=== PATIENT | male | born 2000 | race African-American/Black ===

== ENCOUNTER 2022-06-24 07:04 | Observation (INO) | payer BC, SELFPAY ==
[2022-06-24] MEDS ORDERED: ONDANSETRON 4 MG/2 ML VIAL ONE (07:39)
[2022-06-24] MEDS ORDERED: FAMOTIDINE 20 MG/2 ML VIAL IV ONE (07:39)
[2022-06-24] MEDS ORDERED: NA CHLORIDE 0.9% 1,000 ML ONE ×2 (07:39→07:50)
[2022-06-24] MEDS ORDERED: LABETALOL HCL 100 MG TAB ONE (07:50)
[2022-06-24] MEDS ORDERED: LABETALOL 20 MG/4ML SYRINGE IV ONE ×2 (07:51→09:37)
[2022-06-24 08:00] LABS: Absolute Lymphocytes (CBC) 2.3 K/uL (0.7-4.9); Hematocrit 51.3 % (39.6-49.0); Lymphocytes % 25.3 % (15.3-44.8); MCV 89.5 fL (80-100); MPV 8.6 fL (7.6-11.3); RBC Red Blood Cell Count 5.74 M/uL (4.33-5.43)
[2022-06-24 08:22] LABS: Albumin 3.8 g/dL (3.4-5.0); Bilirubin Direct 0.1 mg/dL (0-0.2); Bilirubin Total 0.4 mg/dL (0.2-1.0); Potassium 3.8 mmol/L (3.5-5.1); Protein, Total 7.6 g/dL (6.4-8.2); Troponin High Sensitivity 24.9 pg/mL (<58.9)
--- NOTE | 2022-06-24 09:18 | RAD REPORT ---
EXAM DESCRIPTION: Will Single View06/24/2022 8:15 am CLINICAL HISTORY: Cough COMPARISON: none FINDINGS: The lungs appear clear of acute infiltrate. The heart is normal size IMPRESSION: No acute abnormalities displayed
[2022-06-24] MEDS ORDERED: Nicardipine/NS 25 MG/250 ML KIT IV ONE ×2 (09:45→16:31)
--- NOTE | 2022-06-24 10:34 | ER ---
Nurse's Notes [facility] Name: Lv Gonzalez Age: 22 yrs Sex: Male : 2000 Arrival Date: 06/24/2022 Time: 07:07 Bed 7 Private MD: Diagnosis: Essential (primary) hypertension-MALIGNANT;Hypertensive heart and chronic kidney disease with heart failure and stage 1 through stage 4 chronic kidney disease, or unspecified chronic kidney disease;Epistaxis Presentation: 06/24 07:26 Chief complaint: Patient states: Node bleed since 0545, hx of nose bleeds with high BP, jl7 denies HANNAH. Coronavirus screen: Vaccine status: Patient reports receiving the 2nd dose of the covid vaccine. At this time, the client does not indicate any symptoms associated with coronavirus-19. Ebola Screen: No symptoms or risks identified at this time. Initial Sepsis Screen: Does the patient meet any 2 criteria? No. Patient's initial sepsis screen is negative. Does the patient have a suspected source of infection? No. Patient's initial sepsis screen is negative. Risk Assessment: Do you want to hurt yourself or someone else? Patient reports no desire to harm self or others. Onset of symptoms was June 24, 2022 at 05:45. 07:26 Method Of Arrival: Ambulatory [facility] 07:29 Acuity: CASH 2 jl7 Triage Assessment: 07:29 General: Appears in no apparent distress. uncomfortable, Behavior is calm, cooperative, jl7 appropriate for age. Pain: Denies pain. Historical: - Allergies: 07:28 No Known Allergies; jl7 - Home Meds: 07:28 metoprolol [Active]; amlodipine oral [Active]; one more HTN pill [Active]; jl7 - PMHx: 07:28 Hypertensive disorder; jl7 - PSHx: 07:28 None; jl7 - Immunization history:: Client reports receiving the 2nd dose of the Covid vaccine. - Social history:: Smoking status: Reported history of juuling and/or vaping. Screenin:07 Abuse screen: Denies threats or abuse. Denies injuries from another. Nutritional kc6 screening: No deficits noted. Tuberculosis screening: No symptoms or risk factors identified. Fall Risk No fall in past 12 months (0 pts). No secondary diagnosis (0 pts). IV access (20 points). Ambulatory Aid- None/Bed Rest/Nurse Assist (0 pts). Gait- Normal/Bed Rest/Wheelchair (0 pts) Mental Status- Oriented to own ability (0 pts). Total Bray Fall Scale indicates No Risk (0-24 pts). Assessment: 08:04 General: Appears in no apparent distress. comfortable, Behavior is calm, cooperative, kc6 appropriate for age. Pain: Denies pain. Neuro: Kenny Agitation-Sedation Scale (RASS): 0 - Alert and Calm Level of Consciousness is awake, alert, obeys commands, Oriented to person, place, time, situation, Appropriate for age. Cardiovascular: Heart tones S1 S2 present Capillary refill < 3 seconds Rhythm is sinus rhythm Chest pain is denied. Respiratory: Airway is patent Trachea midline Respiratory effort is even, unlabored, Respiratory pattern is regular, symmetrical, Breath sounds are clear bilaterally. GI: No signs and/or symptoms were reported involving the gastrointestinal system. : No signs and/or symptoms were reported regarding the genitourinary system. EENT: No signs and/or symptoms were reported regarding the EENT system. Derm: No signs and/or symptoms reported regarding the dermatologic system. Skin is intact, Skin is pink, warm \T\ dry. Musculoskeletal: No signs and/or symptoms reported regarding the musculoskeletal system. Circulation, motion, and sensation intact. Capillary refill < 3 seconds, Range of motion: intact in all extremities. 09:04 Reassessment: Patient appears in no apparent distress at this time. No changes from kc6 previously documented assessment. Patient and/or family updated on plan of care and expected duration. Pain level reassessed. Patient is alert, oriented x 3, equal unlabored respirations, skin warm/dry/pink. Patient denies pain at this time. 10:04 Reassessment: Patient appears in no apparent distress at this time. No changes from kc6 previously documented assessment. Patient and/or family updated on plan of care and expected duration. Pain level reassessed. Patient is alert, oriented x 3, equal unlabored respirations, skin warm/dry/pink. Patient denies pain at this time. 11:04 Reassessment: Patient appears in no apparent distress at this time. No changes from kc6 previously documented assessment. Patient and/or family updated on plan of care and expected duration. Pain level reassessed. Patient is alert, oriented x 3, equal unlabored respirations, skin warm/dry/pink. Patient denies pain at this time. 12:04 Reassessment: Patient appears in no apparent distress at this time. No changes from kc6 previously documented assessment. Patient and/or family updated on plan of care and expected duration. Pain level reassessed. Patient is alert, oriented x 3, equal unlabored respirations, skin warm/dry/pink. Patient denies pain at this time. 13:04 Reassessment: Patient appears in no apparent distress at this time. No changes from kc6 previously documented assessment. Patient and/or family updated on plan of care and expected duration. Pain level reassessed. Patient is alert, oriented x 3, equal unlabored respirations, skin warm/dry/pink. Patient denies pain at this time. 14:04 Reassessment: Patient appears in no apparent distress at this time. No changes from kc6 previously documented assessment. Patient and/or family updated on plan of care and expected duration. Pain level reassessed. Patient is alert, oriented x 3, equal unlabored respirations, skin warm/dry/pink. Patient denies pain at this time. 15:04 Reassessment: Patient appears in no apparent distress at this time. No changes from kc6 previously documented assessment. Patient and/or family updated on plan of care and expected duration. Pain level reassessed. Patient is alert, oriented x 3, equal unlabored respirations, skin warm/dry/pink. Patient denies pain at this time. 16:04 Reassessment: Patient appears in no apparent distress at this time. No changes from kc6 previously documented assessment. Patient and/or family updated on plan of care and expected duration. Pain level reassessed. Patient is alert, oriented x 3, equal unlabored respirations, skin warm/dry/pink. Patient denies pain at this time. 17:04 Reassessment: Patient appears in no apparent distress at this time. No changes from kc6 previously documented assessment. Patient and/or family updated on plan of care and expected duration. Pain level reassessed. Patient is alert, oriented x 3, equal unlabored respirations, skin warm/dry/pink. Patient denies pain at this time. 18:04 Reassessment: Patient appears in no apparent distress at this time. No changes from kc6 previously documented assessment. Patient and/or family updated on plan of care and expected duration. Pain level reassessed. Patient is alert, oriented x 3, equal unlabored respirations, skin warm/dry/pink. Patient denies pain at this time. Vital Signs: 07:26 Pulse 77; Resp 17; Temp 97.2; Pulse Ox 100% on R/A; Weight 158.76 kg; Height 6 ft. 4 jl7 in. (193.04 cm); Pain 0/10; 07:29 BP 252 / 161; jl7 08:06 BP 237 / 153 LA Sitting (auto/lg); Pulse 70 LA; Resp 14 S; Temp 98.0(O); Pulse Ox 99% kc6 on R/A; Pain 0/10; 09:06 BP 219 / 112 LA Sitting (auto/lg); Pulse 59; Resp 18 S; Pulse Ox 98% on R/A; Pain 0/10; kc6 10:06 BP 201 / 128 LA Sitting (auto/lg); Pulse 59; Resp 18 S; Pulse Ox 98% on R/A; Pain 0/10; kc6 11:06 BP 184 / 110 LA Sitting (auto/reg); Pulse 63; Resp 18 S; Pulse Ox 96% on R/A; Pain 0/10;kc6 12:06 BP 194 / 133 LA Sitting (auto/lg); Pulse 86; Resp 18 S; Pulse Ox 99% on R/A; Pain 0/10; kc6 07:26 Body Mass Index 42.60 (158.76 kg, 193.04 cm) jl7 ED Course: 07:07 Patient arrived in ED. as 07:29 Arm band placed on right wrist. jl7 07:30 Triage completed. jl7 07:31 Alex Gonzalez MD is Attending Physician. [facility] 07:31 Smitha Melo, LILLY is Primary Nurse. kc6 07:55 Inserted saline lock: 20 gauge in right antecubital area, using aseptic technique. ko1 Blood collected. 08:03 XRAY Chest (1 view) Sent. kc6 08:17 XRAY Chest (1 view) In Process Unspecified. EDMS 10:31 Brian Castro is Hospitalizing Provider. mami 11:25 SARS RAPID Sent. kc6 14:14 No provider procedures requiring assistance completed. Patient admitted, IV remains in kc6 place. 14:15 Patient has correct armband on for positive identification. Placed in gown. Bed in low kc6 position. Call light in reach. Side rails up X2. Adult w/ patient. Administered Medications: 08:04 Drug: NS 0.9% 1000 ml Route: IV; Rate: 75 ml/hr; Site: right forearm; kc6 09:04 Follow up: Response: No adverse reaction; IV Status: Infusion continued kc6 08:04 Drug: Labetalol 100 mg Route: PO; kc6 09:04 Follow up: Response: No adverse reaction; Blood pressure is unchanged kc6 08:04 Drug: Labetalol 20 mg Route: IV; Rate: per protocol; Infused Over: 2 mins; Site: left kc6 forearm; 09:04 Follow up: Response: No adverse reaction; Blood pressure is unchanged; IV Status: kc6 Completed infusion; IV Intake: 4ml 09:52 Not Given (Physician Discretion): Labetalol 40 mg IV at per protocol once over 2 mins; kc6 if sys greater than 200 after 20mg 10:00 Drug: Cardene (niCARdipine) 5 mg/hr Route: IV; Rate: per protocol; Site: right forearm; kc6 11:00 Follow up: Response: No adverse reaction; Blood pressure is lowered; IV Status: kc6 Infusion continued 11:16 Drug: Norvasc (amlodipine) 10 mg Route: PO; kc6 12:16 Follow up: Response: No adverse reaction; Blood pressure is unchanged kc6 Medication: 14:14 VIS not applicable for this client. kc6 Intake: 09:04 IV: 4ml; Total: 4ml. kc6 Outcome: 10:33 Decision to Hospitalize by Provider. mami 14:14 Admitted to ER Hold. Please see [facility] for further documentation. kc6 14:14 Condition: stable 14:14 Instructed on the need for admit. 06/25 19:07 Patient left the ED. vg1 Signatures: Dispatcher [employer] EDAlex Cat MD MD cha Martinez, Amelia as Leal, Jahala RN RN jl7 Vianca Gonzalez RN RN vg1 Smitha Melo RN RN kc6 Dena Rankin RN RN ko1
--- NOTE | 2022-06-24 10:34 | EDPHYS ---
Physician Documentation [facility] Name: Lv Gonzalez Age: 22 yrs Sex: Male : 2000 Arrival Date: 06/24/2022 Time: 07:07 Bed 7 Private MD: ED Physician Alex Gonzalez HPI: 06/24 10:25 This 22 yrs old Black Male presents to ER via Ambulatory with complaints of Nose Bleed. mami 10:25 The patient presents with BLEEDING. mami Historical: - Allergies: 07:28 No Known Allergies; jl7 - Home Meds: 07:28 metoprolol [Active]; amlodipine oral [Active]; one more HTN pill [Active]; jl7 - PMHx: :28 Hypertensive disorder; jl - PSHx: :28 None; jl7 - Immunization history:: Client reports receiving the 2nd dose of the Covid vaccine. - Social history:: Smoking status: Reported history of juuling and/or vaping. ROS: 10:25 Constitutional: Negative for fever, chills, and weight loss, Eyes: Negative for injury, mami pain, redness, and discharge, Neck: Negative for injury, pain, and swelling, Cardiovascular: Negative for chest pain, palpitations, and edema, Respiratory: Negative for shortness of breath, cough, wheezing, and pleuritic chest pain, Abdomen/GI: Negative for abdominal pain, nausea, vomiting, diarrhea, and constipation, Back: Negative for injury and pain, : Negative for injury, bleeding, discharge, and swelling, MS/Extremity: Negative for injury and deformity, Skin: Negative for injury, rash, and discoloration, Neuro: Negative for headache, weakness, numbness, tingling, and seizure, Psych: Negative for depression, anxiety, suicide ideation, homicidal ideation, and hallucinations, Allergy/Immunology: Negative for hives, rash, and allergies, Endocrine: Negative for neck swelling, polydipsia, polyuria, polyphagia, and marked weight changes, Hematologic/Lymphatic: Negative for swollen nodes, abnormal bleeding, and unusual bruising. 10:25 ENT: Positive for nose bleed. Exam: 10:25 Constitutional: This is a well developed, well nourished patient who is awake, alert, mami and in no acute distress. Head/Face: Normocephalic, atraumatic. Eyes: Pupils equal round and reactive to light, extra-ocular motions intact. Lids and lashes normal. Conjunctiva and sclera are non-icteric and not injected. Cornea within normal limits. Periorbital areas with no swelling, redness, or edema. Neck: Trachea midline, no thyromegaly or masses palpated, and no cervical lymphadenopathy. Supple, full range of motion without nuchal rigidity, or vertebral point tenderness. No Meningismus. Chest/axilla: Normal chest wall appearance and motion. Nontender with no deformity. No lesions are appreciated. Cardiovascular: Regular rate and rhythm with a normal S1 and S2. No gallops, murmurs, or rubs. Normal PMI, no JVD. No pulse deficits. Respiratory: Lungs have equal breath sounds bilaterally, clear to auscultation and percussion. No rales, rhonchi or wheezes noted. No increased work of breathing, no retractions or nasal flaring. Abdomen/GI: Soft, non-tender, with normal bowel sounds. No distension or tympany. No guarding or rebound. No evidence of tenderness throughout. Back: No spinal tenderness. No costovertebral tenderness. Full range of motion. Male : Normal genitalia with no discharge or lesions. Skin: Warm, dry with normal turgor. Normal color with no rashes, no lesions, and no evidence of cellulitis. MS/ Extremity: Pulses equal, no cyanosis. Neurovascular intact. Full, normal range of motion. Neuro: Awake and alert, GCS 15, oriented to person, place, time, and situation. Cranial nerves II-XII grossly intact. Motor strength 5/5 in all extremities. Sensory grossly intact. Cerebellar exam normal. Normal gait. Psych: Awake, alert, with orientation to person, place and time. Behavior, mood, and affect are within normal limits. 10:25 ECG was reviewed by the Attending Physician. Vital Signs: 07:26 Pulse 77; Resp 17; Temp 97.2; Pulse Ox 100% on R/A; Weight 158.76 kg; Height 6 ft. 4 jl7 in. (193.04 cm); Pain 0/10; 07:29 BP 252 / 161; jl7 08:06 BP 237 / 153 LA Sitting (auto/lg); Pulse 70 LA; Resp 14 S; Temp 98.0(O); Pulse Ox 99% kc6 on R/A; Pain 0/10; 09:06 BP 219 / 112 LA Sitting (auto/lg); Pulse 59; Resp 18 S; Pulse Ox 98% on R/A; Pain 0/10; kc6 10:06 BP 201 / 128 LA Sitting (auto/lg); Pulse 59; Resp 18 S; Pulse Ox 98% on R/A; Pain 0/10; kc6 11:06 BP 184 / 110 LA Sitting (auto/reg); Pulse 63; Resp 18 S; Pulse Ox 96% on R/A; Pain 0/10;kc6 12:06 BP 194 / 133 LA Sitting (auto/lg); Pulse 86; Resp 18 S; Pulse Ox 99% on R/A; Pain 0/10; kc6 07:26 Body Mass Index 42.60 (158.76 kg, 193.04 cm) jl7 MDM: 07:31 Patient medically screened. [facility] 10:28 Differential diagnosis: spontaneous epistaxis. Data reviewed: vital signs, nurses mami notes, lab test result(s), EKG, radiologic studies, plain films. Data interpreted: director surgical: rate is 70 beats/min, rhythm is regular, Pulse oximetry: on room air is 99 %. Test interpretation: by ED physician or midlevel provider: ECG, plain radiologic studies. Counseling: I had a detailed discussion with the patient and/or guardian regarding: the historical points, exam findings, and any diagnostic results supporting the discharge/admit diagnosis, lab results, radiology results, the need for further work-up and treatment in the hospital. 06/24 07:35 Order name: Basic Metabolic Panel; Complete Time: 19:37 [facility] 06/24 07:35 Order name: CBC with Diff; Complete Time: 10:18 [facility] 06/24 07:35 Order name: LFT's; Complete Time: 19:37 [facility] 06/24 07:35 Order name: Magnesium; Complete Time: 19:37 [facility] 06/24 07:35 Order name: NT PRO-BNP; Complete Time: 19:37 [facility] 06/24 07:35 Order name: PT-INR; Complete Time: 10:18 [facility] 06/24 07:35 Order name: Troponin HS; Complete Time: 19:37 [facility] 06/24 07:35 Order name: XRAY Chest (1 view); Complete Time: 10:18 [facility] 06/24 07:35 Order name: SARS RAPID; Complete Time: 19:37 [facility] 06/25 02:45 Order name: CBC with Automated Diff; Complete Time: 02:45 [facility] 06/25 03:05 Order name: Basic Metabolic Panel; Complete Time: 04:00 [facility] 06/25 03:06 Order name: NT PRO-BNP; Complete Time: 04:00 [facility] 06/25 11:28 Order name: Urine Dipstick-Ancillary [facility] 06/24 07:35 Order name: EKG; Complete Time: 07:35 [facility] 06/24 07:35 Order name: Cardiac monitoring; Complete Time: 07:47 [facility] 06/24 07:35 Order name: EKG - Nurse/Tech; Complete Time: 07:48 [facility] 06/24 07:35 Order name: IV Saline Lock; Complete Time: 08:04 [facility] 06/24 07:35 Order name: Labs collected and sent; Complete Time: 08:04 [facility] 06/24 07:35 Order name: O2 Per Protocol; Complete Time: 07:48 [facility] 06/24 07:35 Order name: O2 Sat Monitoring; Complete Time: 07:48 [facility] EC:25 Rate is 58 beats/min. Rhythm is regular. QRS Mabel is Normal. CA interval is normal. QRS mami interval is normal. QT interval is normal. No Q waves. T waves are Normal. ST Segment is elevated in leads aVR, V1. ST Segment is depressed in leads I, II, aVL, V5, V6. Administered Medications: 08:04 Drug: NS 0.9% 1000 ml Route: IV; Rate: 75 ml/hr; Site: right forearm; [facility] 09:04 Follow up: Response: No adverse reaction; IV Status: Infusion continued [facility] 08:04 Drug: Labetalol 100 mg Route: PO; [facility] 09:04 Follow up: Response: No adverse reaction; Blood pressure is unchanged [facility] 08:04 Drug: Labetalol 20 mg Route: IV; Rate: per protocol; Infused Over: 2 mins; Site: left [address]; 09:04 Follow up: Response: No adverse reaction; Blood pressure is unchanged; IV Status: [facility] Completed infusion; IV Intake: 4ml 09:52 Not Given (Physician Discretion): Labetalol 40 mg IV at per protocol once over 2 mins; [facility] if sys greater than 200 after 20mg 10:00 Drug: Cardene (niCARdipine) 5 mg/hr Route: IV; Rate: per protocol; Site: right forearm; kc6 11:00 Follow up: Response: No adverse reaction; Blood pressure is lowered; IV Status: kc6 Infusion continued 11:16 Drug: Norvasc (amlodipine) 10 mg Route: PO; kc6 12:16 Follow up: Response: No adverse reaction; Blood pressure is unchanged kc6 Disposition Summary: 06/24/22 10:33 Hospitalization Ordered Hospitalization Status: Inpatient Admission mami Provider: Brian Castro cha Condition: Fair mami Problem: new mami Symptoms: have improved mami Bed/Room Type: Standard mami Location: [facility] ER HOLD(06/24/22 17:55) jl7 Room Assignment: ERHOLD-(06/24/22 17:55) jl7 Diagnosis - Essential (primary) hypertension - MALIGNANT mami - Hypertensive heart and chronic kidney disease with heart failure and stage 1 mami through stage 4 chronic kidney disease, or unspecified chronic kidney disease - Epistaxis mami Forms: - Medication Reconciliation Form mami - SBAR form mami Signatures: Dispatcher [employer] EDAlex Cat MD MD cha Leal, Jahala RN RN jl7 Smitha Melo RN RN [email or web address] Danielle Lopez PA-C PADoretha [id number] Corrections: (The following items were deleted from the chart) 17:55 10:33 Intensive Care Unit [facility]7 17:55 10:33 [facility]7
[2022-06-24] MEDS ORDERED: AMLODIPINE 10 MG TAB ONE (11:13)
[2022-06-24 11:39] LABS: Magnesium 2.3 mg/dL (1.8-2.4)
[2022-06-24] MEDS ORDERED: ACETAMINOPHEN 325 MG TABLET PO PRN (11:48)
[2022-06-24] MEDS ORDERED: HYDROCODONE/APAP 5/325 MG TAB PO PRN (11:48)
[2022-06-24] MEDS ORDERED: HYDRALAZINE HCL 20 MG/ML VIAL IV PRN (11:51)
[2022-06-24 11:52] LABS: SARS-CoV-2 Antigen Rapid Res Negative (Negative)
[2022-06-24] MEDS ORDERED: ONDANSETRON 4 MG/2 ML VIAL IV PRN (12:06)
--- NOTE | 2022-06-24 12:13 | P.HP ---
Certification for Inpatient Patient admitted to: Inpatient With expected LOS: >2 Midnights Patient will require the following post-hospital care: None Practitioner: I am a practitioner with admitting privileges, knowledge of patient current condition, hospital course, and medical plan of care. Services: Services provided to patient in accordance with Admission requirements found in Title 42 Section 412.3 of the Code of Federal Regulations Patient History Date of Service: 06/24/22 Reason for admission: Epistaxis History of Present Illness: Patient is a 22-year-old male with a past medical history significant for hypertension and morbid obesity who presents with complaint of epistaxis.. Patient reported that his blood pressure was elevated with SBP in the 250s. Patient reported he was prescribed 3 medications but he has only josiane taking 2 because the 3rd medication makes him feel bad. Patient also indicated that his SBP has been in the 200s. Patient denies any other signs and symptoms. Symptoms are aggravated or relieved by nothing. Patient reported that he had similar episode of nosebleed last week but it self-resolved. Patient decided to present to the hospital due to worsening symptoms. Allergies No Known Allergies Allergy (Unverified 06/24/22 12:02) - Past Medical/Surgical History -: Hypertension -: Morbid obesity. Past Surgical History: Reviewed- Non-Contributory - Family History Family History: Reviewed- Non-Contributory - Social History Smoking Status: Current every day smoker Counseled patient to stop smoking for: less than 10 minutes Smoking therapy provided: Yes Patient receptive to therapy: Yes Alcohol use: Yes CD- Drugs: No Caffeine use: No Place of Residence: Home Review of Systems General: Unremarkable Eyes: Unremarkable ENT: Other (Epistaxis) Respiratory: Unremarkable Cardiovascular: Unremarkable Gastrointestinal: Unremarkable Genitourinary: Unremarkable Musculoskeletal: Unremarkable Integumentary: Unremarkable Neurological: Unremarkable Lymphatics: Unremarkable Physical Examination - Physical Exam General: Alert, Oriented x3 HEENT: Atraumatic, Normocephalic, PERRLA Neck: 2+ carotid pulse no bruit, JVD not distended Respiratory: Clear to auscultation bilaterally, Normal air movement Cardiovascular: No edema, Normal pulses, Regular rate/rhythm, Normal S1 S2 Capillary refill: <2 Seconds Gastrointestinal: Normal bowel sounds, Non-distended Musculoskeletal: No clubbing, No swelling, No contractures, No erythema Integumentary: No rashes, No breakdown, No significant lesion, No tenderness/swelling Neurological: Normal gait, Normal speech, Normal strength at 5/5 x4 extr, Normal tone, Normal affect Lymphatics: No axilla or inguinal lymphadenopathy - Studies Laboratory Data (last 24 hrs) 06/24/22 07:50: PT 11.0, INR 1.00 06/24/22 07:50: WBC 9.20, Hgb 17.2, Hct 51.3 H, Plt Count 165 06/24/22 07:50: Sodium 139, Potassium 3.8, BUN 22 H, Creatinine 1.76 H, Glucose 103, Magnesium 2.3, Total Bilirubin 0.4, AST 40 H, ALT 94 H, Alkaline Phosphatase 87 Assessment and Plan - Plan --Epistaxis. Likely secondary to elevated blood pressure. Nosebleed resolved. We will continue to monitor H&H. --Hypertensive urgency. Patient placed on Cardene drip in ER. Cardiology consulted. Echocardiogram pending to assess cardiac structures and functions. Will await further recommendations from the tray line supervisor. --Class III obesity. Likely secondary to excess calories intake. Patient counseled on weight reduction, diet and exercise therapy. -- CKD 3A. Baseline functions unknown. We will continue to monitor renal functions. --Elevated BNP. Echocardiogram pending to assess LV\valvular function and wall motion. Will give patient a dose of Lasix. Further management per tray line supervisor. -- Elevated LFTs. Mild elevation noted. Unclear etiology. Continue supportive care. -- DVT prophylaxis with Lovenox subQ. Discharge Plan: Home Plan to discharge in: Greater than 2 days - Advance Directives Does patient have a Living Will: No Does patient have a Durable POA for Healthcare: No - Code Status/Comfort Care Code Status Assessed: Yes Code Status: Full Code Physician Review: Patient Assessed, Agree with Above Assessment and Plan Critical Care: Yes
[2022-06-24] MEDS ORDERED: HYDRALAZINE HCL 20 MG/ML VIAL ONE (13:06)
[2022-06-24 13:43] VITALS: BMI 42.5
[2022-06-24] MEDS ORDERED: INFLUENZA VACCINE (for 6+ mo) 0.5 ML DOSE IMVAC ONE (14:00)
[2022-06-24] MEDS ORDERED: DILTIAZEM INJ 125 MG in NA CHLORIDE 0.9% 100 ML IV SCH (17:00)
[2022-06-24] MEDS ORDERED: Nicardipine in Saline, Iso-Osm 20 MG/200 ML IV.SOLN. IV SCH (17:00)
[2022-06-24] MEDS ORDERED: ACETAMINOPHEN 325 MG TABLET ONE (18:14)
[2022-06-24] MEDS ORDERED: FUROSEMIDE 40 MG/4 ML VIAL IV ONE (19:00)
[2022-06-24] MEDS ORDERED: FUROSEMIDE 40 MG/4 ML VIAL ONE (19:40)
[2022-06-24] MEDS ORDERED: dilTIAZem HCL 25 MG/5 ML VIAL IV ONE ×3 (19:41→20:05)
[2022-06-24] MEDS ORDERED: NA CHLORIDE 0.9% 100 ML IV ONE (19:44)
[2022-06-25 02:43] LABS: Absolute Lymphocytes (CBC) 2.1 K/uL (0.7-4.9); Hematocrit 52.2 % (39.6-49.0); Lymphocytes % 21.9 % (15.3-44.8); MCV 88.7 fL (80-100); MPV 8.7 fL (7.6-11.3); RBC Red Blood Cell Count 5.89 M/uL (4.33-5.43)
[2022-06-25 03:05] LABS: Potassium 3.8 mmol/L (3.5-5.1)
--- NOTE | 2022-06-25 07:50 | ECHO ---
HEIGHT: 6 ft 4 in WEIGHT: 350 lb 0 oz DATE OF STUDY: 06/24/[address]: Corey Cho 2-DIMENSIONAL: YES M.MODE: YES DOPPLER: YES COLOR FLOW: YES TDS: NO PORTABLE: YES DEFINITY: NO BUBBLE STUDY: NO DIAGNOSIS: HYPERTENSION URGENCY CARDIAC HISTORY: CATHERIZATION: SURGERY: PROSTHETIC VALVE: PACEMAKER: MEASUREMENTS (cm) DIASTOLIC (NORMALS) SYSTOLIC (NORMALS) IVSd 1.9 (0.6-1.2) LA Diam 3.6 (1.9-4.0) LVEF 60% LVIDd 4.4 (3.5-5.7) LVIDs 3.0 (2.0-3.5) %FS 32% LVPWd 1.7 (0.6-1.2) Ao Diam 3.2 (2.0-3.7) 2 DIMENSIONAL ASSESSMENT: RIGHT ATRIUM: NORMAL LEFT ATRIUM: NORMAL RIGHT VENTRICLE: NORMAL LEFT VENTRICLE: NORMAL TRICUSPID VALVE: NORMAL MITRAL VALVE: NORMAL PULMONIC VALVE: NORMAL AORTIC VALVE: NORMAL PERICARDIAL EFFUSION: NONE AORTIC ROOT: NORMAL LEFT VENTRICULAR WALL MOTION: NORMAL DOPPLER/COLOR FLOW: DECREASED LEFT VENTRICULAR COMPLIANCE. COMMENTS: 1. DECREASED LEFT VENTRICULAR COMPLIANCE. 2. SEVERE LEFT VENTRICULAR HYPERTROPHY - CONCENTRIC. 3. NO EFFUSION. 4. NORMAL LEFT VENTRICULAR EJECTION FRACTION. TECHNOLOGIST: Douglas MILES
[2022-06-25] MEDS ORDERED: ASPIRIN EC 81 MG TAB PO SCH (09:00)
[2022-06-25] MEDS ORDERED: ASPIRIN EC 81 MG TAB PO ONE (09:46)
[2022-06-25] MEDS ORDERED: NICARDIPINE HCL 25 MG in NA CHLORIDE 0.9% 240 ML IV SCH (10:00)
[2022-06-25] MEDS: HYDRALAZINE HCL 25 MG TABLET PO SCH ×2 (11:04→14:00)
[2022-06-25] MEDS ORDERED: AMLODIPINE 10 MG TAB PO SCH (11:04)
[2022-06-25] MEDS: METOPROLOL TAR 25 MG TAB PO SCH ×2 (11:05→18:00)
[2022-06-25 11:28] LABS: Urine Blood Negative (Negative); Urine Glucose Negative (Negative); Urine Protein 2+ (Negative); Urine Specific Gravity >=1.030 (1.005-1.030)
[2022-06-25 11:55] VITALS: O2SAT 99
[2022-06-25] MEDS ORDERED: HYDRALAZINE HCL 25 MG TABLET ONE ×2 (12:46→16:58)
[2022-06-25] MEDS ORDERED: METOPROLOL TAR 25 MG TAB ONE ×2 (12:47→16:58)
[2022-06-25] MEDS ORDERED: AMLODIPINE 10 MG TAB ONE (12:47)
--- NOTE | 2022-06-25 15:51 | CON ---
Date of Consultation: 06/24/2022 Reason For Consultation: Hypertensive crisis. History Of Present Illness: Mr. Gonzalez is only 22. He is supposed to take metoprolol and amlodipine at home. Was taking losartan, but it bothers him, so he quit taking it. Came in with hypertensive e mergency. No symptoms. Past Medical History: Includes hypertension. Allergies: NONE. Medications: Listed earlier. Review of Systems: Negative. Social History: Negative. Family History: Negative. Physical Examination: Vital Signs: His blood pressure when he came in was 240/130. He was in sinus rhythm. HEENT: Negative. Neck: Supple without any bruit, lymphadenopathy, JVD, or thyromegaly. Chest: Clear to auscultation and percussion. Cardiac: Revealed S4 gallops. Regular rhythm and rate. No murmurs or rubs. Abdomen: Benign. Extremities: Revealed no clubbing, cyanosis, or edema. Diagnostic Data: Showed a BNP of 1847. Echo shows LVH. Creatinine is 1.77. Impression And Plan: Hypertension with left ventricular hypertrophy, diastolic dysfunction. The pat ient needs some very aggressive treatment. I think he is on metoprolol and amlodipine. I think we s hould add hydralazine, probably add a low-dose diuretic hydrochlorothiazide. Case was discussed with Dr. Castro. Continue metoprolol, amlodipine, consider use of clonidine as well. We will see him in the office as an outpatient. JAIMIE/OSCRA Voice ID: [id number] Report ID: [id number]
[2022-06-25 18:08] VITALS: TEMP 98.2
--- NOTE | 2022-06-25 18:28 | P.DS ---
Admission Date: 06/24/22 Discharge Date: 06/25/22 Disposition: DC HOME/HOME HEALTH CARE Discharge Condition: FAIR Reason for Admission: Epistaxis - Problems (1) Malignant hypertension Status: Acute (2) Epistaxis Status: Acute Brief History of Present Illness: Patient is a 22-year-old male with a past medical history significant for hyper tension and morbid obesity who presents with complaint of epistaxis. Patient reported that his blood pressure was elevated with SBP in the 250s. Patient reported he was prescribed 3 medications but he has only been taking 2 because the 3rd medication makes him feel bad. Patient also indicated that his SBP has usually been in the 200s. Patient reported that he had similar episode of nosebleed last week but it self-resolved and has noted his epistaxis is associated with severe BP elevation. Patient was started on nicardipine drip and admitted for further management. Hospital Course: Patient admitted to ICU on nicardipine drip. He was seen in consultation by cardiology. Echocardiogram done demonstrated LVH. His home antihypertensives- metoprolol and amlodipine were resumed and hydralazine added. Nicardipine drip was subsequently weaned off with his systolic blood pressure ranging between 140s to 170. Epistaxis resolved. No episodes since admission. Patient is discharged to continue his home dose metoprolol and amlodipine. Hydralazine 25 mg 3 times daily added to improve his blood pressure. Vital Signs/Physical Exam: Temp Pulse Resp BP Pulse Ox 98.2 F 70 14 175/104 H 100 06/25/22 17:00 06/25/22 18:00 06/25/22 17:00 06/25/22 18:00 06/25/22 17:00 General: Alert, In no apparent distress, Oriented x3, Obese HEENT: Mucous membr. moist/pink Neck: Supple, JVD not distended Respiratory: Clear to auscultation bilaterally, Normal air movement Cardiovascular: No edema, Regular rate/rhythm, Normal S1 S2 Gastrointestinal: Normal bowel sounds, Soft and benign, Non-distended, No tenderness Musculoskeletal: No swelling Integumentary: No rashes, No cyanosis Neurological: Normal strength at 5/5 x4 extr Laboratory Data at Discharge: WBC 9.80 K/uL (4.3-10.9) 06/25/22 02:14 Hgb 18.0 g/dL (13.6-17.9) H 06/25/22 02:14 Hct 52.2 % (39.6-49.0) H 06/25/22 02:14 Plt Count 190 K/uL (152-406) 06/25/22 02:14 PT 11.0 SECONDS (9.5-12.5) 06/24/22 07:50 INR 1.00 06/24/22 07:50 Sodium 139 mmol/L (136-145) 06/25/22 02:14 Potassium 3.8 mmol/L (3.5-5.1) 06/25/22 02:14 BUN 19 mg/dL (7-18) H 06/25/22 02:14 Creatinine 1.77 mg/dL (0.55-1.3) H 06/25/22 02:14 Glucose 100 mg/dL (74-106) 06/25/22 02:14 Magnesium 2.3 mg/dL (1.8-2.4) 06/24/22 07:50 Total Bilirubin 0.4 mg/dL (0.2-1.0) 06/24/22 07:50 AST 40 U/L (15-37) H 06/24/22 07:50 ALT 94 U/L (12-78) H 06/24/22 07:50 Alkaline Phosphatase 87 U/L (45-117) 06/24/22 07:50 Home Medications: Aspirin [Aspirin EC 81 MG] 81 mg PO DAILY #30 tab 06/25/22 Hydralazine [Apresoline*] 25 mg PO TID #90 tab 06/25/22 Metoprolol Succinate [Toprol Xl] 100 mg PO DAILY #30 tab 06/25/22 New Medications: Hydralazine [Apresoline*] 25 mg PO TID #90 tab Aspirin [Aspirin EC 81 MG] 81 mg PO DAILY #30 tab Metoprolol Succinate [Toprol Xl] 100 mg PO DAILY #30 tab Diet: AHA Activity: Ad ralf Followup: NONE,NONE [Primary Care Provider] - 1-2 Weeks
[2022-06-25 19:25] VITALS: BP 181/90
--- NOTE | 2022-06-27 19:22 | EKG ---
Test Date: 2022-06-24 Test Time: 07:39:01 Display Department Manager: ROGELIO MEASUREMENT RESULTS: Intervals: Rate: 58 MS: 150 QRSD: 118 QT: 456 QTc: 447 [place]: P: 62 MS: 150 QRS: 77 T: 162 INTERPRETIVE STATEMENTS: Sinus bradycardia with sinus arrhythmia Incomplete right bundle branch block ST & T wave abnormality, consider inferolateral ischemia Abnormal ECG No previous ECG available for comparison Electronically Signed On 06-27-22 19:11:31 ELEMENT SETTER by Troy Pereira
== END 2022-06-25 18:55 | disposition home health service (06) ==
LOC: ER 07:04 → ERHOLD 11:44 → INTOOBSV 11:44
PROVIDERS: ADMIT Internal Medicine; ATTEND Internal Medicine
DX: I16.9 Hypertensive crisis, unspecified (principal); I51.7 Cardiomegaly; E66.01 Morbid (severe) obesity due to excess calories; F17.210 Nicotine dependence, cigarettes, uncomplicated; R79.89 Other specified abnormal findings of blood chemistry; N18.31 Chronic kidney disease, stage 3a; Z20.822 Contact with and (suspected) exposure to COVID-19
CPT/HCPCS: 93005; 93306; 85025 ×2; 80048 ×2; 36415; 83735; 85610; 80076; 81003; 84484; 83880 ×2; 71045; 99285; 87811; J0360; J1940; J7050 ×3; J7030 ×2; J2405; G0378 ×3

== ENCOUNTER 2022-09-23 05:53 | Observation (INO) | payer BC ==
--- OUTSIDE RECORDS SUMMARY | 2022-09-23 05:56 | XMS REPORT | Continuity of Care Document ---
:[address] [facility] t Address [address] [place] [address] Dr. Osw[address] [place] [address] Care Team Providers Name Role Phone EMI Attending Clinician Unavailable Aneudy Naqvi Attending Clinician [phone] EMI Admitting Clinician Unavailable Payers Payer Name Policy Type Policy Number Effective Date Expiration Date Maranda de la torre [place]: [id number] 2021 ADE CALHOUN 00:00:00 [place] ([place] [id number] 2019 [place] 00:00:00 Problems Condition Condition Condition Status Onset Resolution Last Treating Co mments Source Name Details Category Date Date Treatment Clinician Date Chronic Chronic Problem Active [place] kidney Kidney 7-26 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 00 [facility] Hypertensi Hypertensi Problem Active 2019-08 S weeny ve ve 2-04 Communi disorder Disorder 00:00: ty 00 [facility] Blood in Blood in Problem Active 2019-08 Sween y urine Urine 2-04 Communi 00:00: ty 00 [facility]ita [facility] Clinics Essential Essential Problem Active 2018-08 Swe juarez hypertensi Hypertensi 1-11 Co mmuni on on 00:00: ty 00 Hospita l Clinics Allergies, Adverse Reactions, Alerts Allergy Allergy Status Severity Reaction(s) Onset Inactive Treating Comm ents Source Name Type Date Date Clinician Iodine Allergy Active Moderate Facial [place] to swelling Communi substanc ty e Hospita l Clinics IODINE Allergy Active Severe Angioedema Sween y AND to Communi IODIDE substanc ty CONTAINI e Hospita NG l PRODUCTS Clinics Social History Smoking Status Start Date Stop Date Source Current Every Day Smoker [place] [facility] Medications Ordered Filled Start Stop Current Ordering Indication Dosage Frequency Signature Comments Components Source Medication Medication Date Date Medication? Clinician (SIG) Name Name carvedilol carvedilol 2020-08 No 1 BID carvedilol [place] 25 mg 25 mg 0-25 25 mg Communi tablet Take tablet Take 00:00: tablet ty 1 tablet 1 tablet 00 Take 1 Hospi ta twice a day twice a day tablet l by oral by oral twice a Clinic s route. route. day by oral route. carvedilol carvedilol No 1 BID carvedilol [place] 25 mg 25 mg 25 mg Communi tablet Take tablet Take tablet ty 1 tablet 1 tablet Take 1 Hospi ta twice a day twice a day tablet l by oral by oral twice a Clinic s route. route. day by oral route. hydrochloro hydrochloro No hydrochlor [place] thiazide 25 thiazide 25 othiazide Communi mg tablet mg tablet 25 mg ty TAKE 1 TAKE 1 tablet Hospita TABLET BY TABLET BY TAKE 1 l MOUTH EVERY MOUTH EVERY TABLET BY Clinics DAY DAY MOUTH EVERY DAY losartan losartan No losartan Swe juarez 100 mg 100 mg 100 mg Communi tablet TAKE tablet TAKE tablet ty 1 TABLET BY 1 TABLET BY TAKE 1 Hospita MOUTH EVERY MOUTH EVERY TABLET BY l DAY DAY MOUTH Clinics EVERY DAY carvedilol carvedilol No 1 BID carvedilol [place] 25 mg 25 mg 25 mg Communi tablet Take tablet Take tablet ty 1 tablet 1 tablet Take 1 Hospi ta twice a day twice a day tablet l by oral by oral twice a Clinic s route. route. day by oral route. Exforge HCT Exforge HCT No 1 Q1D Exforge [place] 10 mg-320 10 mg-320 HCT 10 Com esteban mg-25 mg mg-25 mg mg-320 ty tablet Take tablet Take mg-25 mg Hospita 1 tablet 1 tablet tablet l every day every day Take 1 Cli nics by oral by oral tablet route. route. every day by oral route. amlodipine amlodipine No amlodipine [place] 10 10 10 Communi mg-valsarta mg-valsarta mg-valsart ty n 320 mg n 320 mg an 320 mg Ho spita tablet TAKE tablet TAKE tablet l 1 TABLET BY 1 TABLET BY TAKE 1 Clinics MOUTH EVERY MOUTH EVERY TABLET BY DAY DAY MOUTH EVERY DAY hydrochloro hydrochloro No hydrochlor [place] thiazide 25 thiazide 25 othiazide Communi mg tablet mg tablet 25 mg ty TAKE 1 TAKE 1 tablet Hospita TABLET BY TABLET BY TAKE 1 l MOUTH EVERY MOUTH EVERY TABLET BY Clinics DAY DAY MOUTH EVERY DAY amlodipine amlodipine No amlodipine [place] 10 10 10 Communi mg-valsarta mg-valsarta mg-valsart ty n 320 mg n 320 mg an 320 mg Ho spita tablet TAKE tablet TAKE tablet l 1 TABLET BY 1 TABLET BY TAKE 1 Clinics MOUTH EVERY MOUTH EVERY TABLET BY DAY DAY MOUTH EVERY DAY hydrochloro hydrochloro No hydrochlor [place] thiazide 25 thiazide 25 othiazide Communi mg tablet mg tablet 25 mg ty TAKE 1 TAKE 1 tablet Hospita TABLET BY TABLET BY TAKE 1 l MOUTH EVERY MOUTH EVERY TABLET BY Clinics DAY DAY MOUTH EVERY DAY metoprolol metoprolol No 1 Q1D metoprolol [place] succinate succinate succinate Communi ER 50 mg ER 50 mg ER 50 mg ty tablet,exte tablet,exte tablet,ext Hospita nded nded ended l release 24 release 24 release 24 Clinics hr Take 1 hr Take 1 hr Take 1 tablet tablet tablet every day every day every day by oral by oral by oral route. route. route. amlodipine amlodipine No 1 Q1D amlodipine [place] 10 10 10 Communi mg-valsarta mg-valsarta mg-valsart ty n 320 mg n 320 mg an 320 mg Ho spita tablet Take tablet Take tablet l 1 tablet 1 tablet Take 1 Clini cs every day every day tablet by oral by oral every day route for route for by oral 30 days. 30 days. route for 30 days. hydrochloro hydrochloro No 1 Q1D hydrochlor [place] thiazide 25 thiazide 25 othiazide Communi mg tablet mg tablet 25 mg ty Take 1 Take 1 tablet Hospita tablet tablet Take 1 l every day every day tablet Cli nics by oral by oral every day route for route for by oral 30 days. 30 days. route for 30 days. metoprolol metoprolol No 1 Q1D metoprolol [place] succinate succinate succinate Communi ER 50 mg ER 50 mg ER 50 mg ty tablet,exte tablet,exte tablet,ext Hospita nded nded ended l release 24 release 24 release 24 Clinics hr Take 1 hr Take 1 hr Take 1 tablet tablet tablet every day every day every day by oral by oral by oral route for route for route for 30 days. 30 days. 30 days. amlodipine amlodipine No 1 Q1D amlodipine [place] 10 10 10 Communi mg-valsarta mg-valsarta mg-valsart ty n 320 mg n 320 mg an 320 mg Ho spita tablet Take tablet Take tablet l 1 tablet 1 tablet Take 1 Clini cs every day every day tablet by oral by oral every day route for route for by oral 30 days. 30 days. route for 30 days. hydrochloro hydrochloro No 1 Q1D hydrochlor [place] thiazide 25 thiazide 25 othiazide Communi mg tablet mg tablet 25 mg ty Take 1 Take 1 tablet Hospita tablet tablet Take 1 l every day every day tablet Cli nics by oral by oral every day route for route for by oral 30 days. 30 days. route for 30 days. metoprolol metoprolol No 1 Q1D metoprolol [place] succinate succinate succinate Communi ER 50 mg ER 50 mg ER 50 mg ty tablet,exte tablet,exte tablet,ext Hospita nded nded ended l release 24 release 24 release 24 Clinics hr Take 1 hr Take 1 hr Take 1 tablet tablet tablet every day every day every day by oral by oral by oral route for route for route for 30 days. 30 days. 30 days. amlodipine amlodipine No amlodipine [place] 10 10 10 Communi mg-valsarta mg-valsarta mg-valsart ty n 320 mg n 320 mg an 320 mg Ho spita tablet TAKE tablet TAKE tablet l 1 TABLET BY 1 TABLET BY TAKE 1 Clinics MOUTH EVERY MOUTH EVERY TABLET BY DAY FOR 30 DAY FOR 30 MOUTH DAYS DAYS EVERY DAY FOR 30 DAYS hydrochloro hydrochloro No hydrochlor [place] thiazide 25 thiazide 25 othiazide Communi mg tablet mg tablet 25 mg ty TAKE 1 TAKE 1 tablet Hospita TABLET BY TABLET BY TAKE 1 l MOUTH EVERY MOUTH EVERY TABLET BY Clinics DAY FOR 30 DAY FOR 30 MOUTH DAYS DAYS EVERY DAY FOR 30 DAYS metoprolol metoprolol No 1 Q1D metoprolol [place] succinate succinate succinate Communi ER 100 mg ER 100 mg ER 100 mg ty tablet,exte tablet,exte tablet,ext Hospita nded nded ended l release 24 release 24 release 24 Clinics hr Take 1 hr Take 1 hr Take 1 tablet tablet tablet every day every day every day by oral by oral by oral route. route. route. metoprolol metoprolol No metoprolol [place] succinate succinate succinate Communi ER 50 mg ER 50 mg ER 50 mg ty tablet,exte tablet,exte tablet,ext Hospita nded nded ended l release 24 release 24 release 24 Clinics hr TAKE 1 hr TAKE 1 hr TAKE 1 TABLET BY TABLET BY TABLET BY MOUTH EVERY MOUTH EVERY MOUTH DAY FOR 30 DAY FOR 30 EVERY DAY DAYS DAYS FOR 30 DAYS carvedilol carvedilol No 1 BID carvedilol [place] 6.25 mg 6.25 mg 6.25 mg Commun i tablet Take tablet Take tablet ty 1 tablet 1 tablet Take 1 Hospi ta twice a day twice a day tablet l by oral by oral twice a Clinic s route. route. day by oral route. hydrochloro hydrochloro No hydrochlor [place] thiazide 25 thiazide 25 othiazide Communi mg tablet mg tablet 25 mg ty TAKE 1 TAKE 1 tablet Hospita TABLET BY TABLET BY TAKE 1 l MOUTH EVERY MOUTH EVERY TABLET BY Clinics DAY DAY MOUTH EVERY DAY losartan losartan No losartan Swe juarez 100 mg 100 mg 100 mg Communi tablet TAKE tablet TAKE tablet ty 1 TABLET BY 1 TABLET BY TAKE 1 Hospita MOUTH EVERY MOUTH EVERY TABLET BY l DAY DAY MOUTH Clinics EVERY DAY carvedilol carvedilol No 1 BID carvedilol [place] 12.5 mg 12.5 mg 12.5 mg Commun i tablet Take tablet Take tablet ty 1 tablet 1 tablet Take 1 Hospi ta twice a day twice a day tablet l by oral by oral twice a Clinic s route. route. day by oral route. hydrochloro hydrochloro No hydrochlor [place] thiazide 25 thiazide 25 othiazide Communi mg tablet mg tablet 25 mg ty TAKE 1 TAKE 1 tablet Hospita TABLET BY TABLET BY TAKE 1 l MOUTH EVERY MOUTH EVERY TABLET BY Clinics DAY DAY MOUTH EVERY DAY losartan losartan No losartan Swe juarez 100 mg 100 mg 100 mg Communi tablet TAKE tablet TAKE tablet ty 1 TABLET BY 1 TABLET BY TAKE 1 Hospita MOUTH EVERY MOUTH EVERY TABLET BY l DAY DAY MOUTH Clinics EVERY DAY Vital Signs Vital Name Observation Time Observation Value Comments Source BP Diastolic 2022-03-03 00:00:00 140 mm[Hg] [facility] Height 2022-03-03 00:00:00 76 [in_i] [facility] BMI (Body Mass 2022-03-03 00:00:00 42.2 kg/m2 [place] [facility] BP Systolic 2022-03-03 00:00:00 224 mm[Hg] [facility] Body Weight 2022-03-03 00:00:00 5552 [oz_av] [facility] BP Diastolic 2022-02-17 00:00:00 148 mm[Hg] [facility] s Height 2022-02-17 00:00:00 76 [in_i] [facility] BMI (Body Mass 2022-02-17 00:00:00 42.1 kg/m2 [facility] s BP Systolic 2022-02-17 00:00:00 264 mm[Hg] [facility] Body Weight 2022-02-17 00:00:00 5536 [oz_av] [facility] s BP Diastolic 2021-08-11 00:00:00 124 mm[Hg] [facility] s Height 2021-08-11 00:00:00 76 [in_i] [facility] BMI (Body Mass 2021-08-11 00:00:00 43.3 kg/m2 [facility]) [facility] BP Systolic 2021-08-11 00:00:00 196 mm[Hg] [facility] Body Weight 2021-08-11 00:00:00 5696 [oz_av] [facility] s BP Diastolic 2021-06-02 00:00:00 100 mm[Hg] [facility] Height 2021-06-02 00:00:00 76 [in_i] [facility] BMI (Body Mass 2021-06-02 00:00:00 43.5 kg/m2 [facility]) [facility] BP Systolic 2021-06-02 00:00:00 180 mm[Hg] [facility] Body Weight 2021-06-02 00:00:00 5712 [oz_av] [facility] BP Diastolic 2021-05-02 00:00:00 108 mm[Hg] [facility] s Height 2021-05-02 00:00:00 76 [in_i] [facility] BMI (Body Mass 2021-05-02 00:00:00 43.7 kg/m2 [facility]) [facility] BP Systolic 2021-05-02 00:00:00 195 mm[Hg] [facility] Body Weight 2021-05-02 00:00:00 5744 [oz_av] [facility] BP Diastolic 2020-10-21 00:00:00 104 mm[Hg] [facility] Height 2020-10-21 00:00:00 76 [in_i] [facility] BMI (Body Mass 2020-10-21 00:00:00 42.6 kg/m2 [facility]) [facility] BP Systolic 2020-10-21 00:00:00 212 mm[Hg] [facility] Body Weight 2020-10-21 00:00:00 5600 [oz_av] [facility] BP Diastolic 2020-10-14 00:00:00 102 mm[Hg] [facility] Height 2020-10-14 00:00:00 76 [in_i] [facility] BMI (Body Mass 2020-10-14 00:00:00 42.5 kg/m2 [facility]) [facility] BP Systolic 2020-10-14 00:00:00 240 mm[Hg] [facility] Body Weight 2020-10-14 00:00:00 5584 [oz_av] [facility] BP Diastolic 2020-08-12 00:00:00 128 mm[Hg] [facility] s Height 2020-08-12 00:00:00 76 [in_i] [facility] BMI (Body Mass 2020-08-12 00:00:00 42 kg/m2 [facility] s BP Systolic 2020-08-12 00:00:00 212 mm[Hg] [facility] Body Weight 2020-08-12 00:00:00 5520 [oz_av] [facility] Procedures Procedure Date / Time Performed Performing Clinician Sour e Circumcision [facility] Plan of Care Planned Activity Planned Date Details Comments Source Diagnostic Test 2022-02-17 BMP, serum or [place] [facility] Pending 00:00:00 plasma [code = [facility] BMP, serum or plasma] Diagnostic Test 2022-02-17 urinalysis, [facility] nit Pending 00:00:00 dipstick [code = [facility] urinalysis, dipstick] Encounters Start End Encounter Admission Attending Care Care Encounter Source Date/Time Date/Time Type Type Clinicians Facility Department ID 2022-03-03 2022-03-03 Outpatient KEAGAN_R [facility] [id number] - [place] 12:41:00 12:41:00 [id number] [facility] i ty [facility] 2022-03-03 2022-03-03 Aneudy [facility] [place] 00:00:00 00:00:00 [facility] DO: [address] Hospit a [facility] l [address], HOSPITAL Clinic s [place], [place] CLINIC, [address] KEAGAN , Ph. 2022-03-03 2022-03-03 Outpatient Keagan [facility] [id number] 00:00:00 00:00:00 Aneudy [id number] Jaden [id number] 2022-02-17 2022-02-17 Outpatient KEAGAN_R [facility] [id number] [place] 02:10:00 02:10:00 [id number] Commun i ty Hospita [facility] Clinics 2022-02-17 2022-02-17 [facility] [place] [facility] [place] 00:00:00 00:00:00 [facility] - ty DO: [address] [facility] [address] KEAGAN , Ph. 2022-02-17 2022-02-17 Outpatient Keagan, [facility] [id number] 00:00:00 00:00:00 Aneudy [id number] Jaden [id number] 2022-02-17 2022-02-17 Outpatient Keagan, [facility] [id number] 00:00:00 00:00:00 Aneudy [id number] Jaden [id number] 2021-10-31 2021-10-31 Outpatient ERICKSON_R [facility] [id number] [place] 02:40:00 02:40:00 325 Commun i ty Hosp[facility] Clinics 2021-09-26 2021-09-26 Outpatient ERICKSON_R [facility] [id number] [place] 03:36:00 03:36:00 218 Commun i ty Hospita [facility] Clinics 2021-08-22 2021-08-22 Outpatient ERICKSON_R [facility] [id number] [place] 01:56:00 01:56:00 114 Commun i ty Hospita [facility] Clinics 2021-08-11 2021-08-11 Outpatient ERICKSON_R [facility] [id number] [place] 04:13:00 04:13:00 103 Commun i ty Hospita [facility] Clinics 2021-08-11 2021-08-11 Outpatient ERICKSON_R [facility] [id number] [place] 04:13:00 04:13:00 113 Commun i ty Hospita [facility] Clinics 2021-08-11 2021-08-11 Aneudy [facility] [place] 00:00:00 00:00:00 [facility] - ty DO: [address] [facility] [place], [place] CLINIC, [address] KEAGAN , Ph. 2021-08-11 2021-08-11 Outpatient Keagan [facility] [id number] 00:00:00 00:00:00 Aneudy [id number] Jaden [id number] 2021-06-02 2021-06-02 Outpatient ERICKSON_R [facility] [id number] [place] 10:18:00 10:18:00 [id number] Commun i ty Hospita [facility] Clinics 2021-06-02 2021-06-02 Aneudy [facility] [place] 00:00:00 00:00:00 [facility] DO: [address] Hospit a [place], [place] CLINIC, [address] KEAGAN , Ph. 2021-06-02 2021-06-02 Outpatient Keagan [facility] [id number] 00:00:00 00:00:00 Aneudy [id number] Jaden [id number] 2021-05-05 2021-05-05 Outpatient ERICKSON_R [facility] [id number] - [place] 05:45:00 05:45:00 [id number] Commun i ty Hospita [facility] Clinics 2021-05-02 2021-05-02 Outpatient ERICKSON_R [facility] 08 - [place] 09:49:00 09:49:00 924 Commun i ty Hospita [facility] Clinics 2021-05-02 2021-05-02 Aneudy [facility] [place] - [place] 24 [place] 00:00:00 00:00:00 [facility] DO: [address] Hospit a [place], [place] CLINIC, [address] KEAGAN , Ph. 2021-05-02 2021-05-02 Outpatient Keagan [facility] [id number] 00:00:00 00:00:00 Aneudy [id number] Jaden [id number] 2021-04-29 2021-04-29 Outpatient ERICKSON_R [facility] [id number] [place] 11:47:00 11:47:00 [id number] Commun i ty Hospita [facility] Clinics 2021-03-05 2021-03-05 Outpatient ERICKSON_R [facility] [id number] - [place] 01:49:00 01:49:00 728 Commun i ty Hospita [facility] Clinics 2021-01-29 2021-01-29 Outpatient ERICKSON_R [facility] 08 - [place] 01:36:00 01:36:00 623 Commun i ty Hospita [facility] Clinics 2020-12-01 2020-12-01 Outpatient ERICKSON_R [facility] [id number] - [place] 01:06:00 01:06:00 425 Commun i ty Hospita [facility] Clinics 2020-10-27 2020-10-27 Outpatient ERICKSON_R [facility] [id number] - [place] 01:02:00 01:02:00 321 Commun i ty Hospita [facility] Clinics 2020-10-21 2020-10-21 Outpatient ERICKSON_R [facility] [id number] - [place] 12:42:00 12:42:00 315 Commun i ty Hospita [facility] Clinics 2020-10-21 2020-10-21 Aneudy [facility] [place] - [place] 15 [place] 00:00:00 00:00:00 [facility] DO: [address] Hospit a [facility] [address], HOSPITAL Clinic s [place], [address] KEAGAN , Ph. 2020-10-21 2020-10-21 Outpatient Keagan [facility] [id number] 00:00:00 00:00:00 Aneudy [id number] Jaden [id number] 2020-10-14 2020-10-14 Outpatient ERICKSON_R [facility] [id number] [place] 04:30:00 04:30:00 308 Commun i ty Hospita [facility] Clinics 2020-10-14 2020-10-14 Outpatient Keagan [facility] [id number] 00:00:00 00:00:00 Aneudy [id number] Jaden [id number] 2020-10-14 2020-10-14 Aneudy [facility] [place] [id number] [place] 00:00:00 00:00:00 [facility] - ty DO: [address] [facility] [address] KEAGAN , Ph. [phone] 2020-09-22 2020-09-22 Outpatient ERICKSON_R [facility] [id number] [place] 01:03:00 01:03:00 214 Commun i ty Hospita [facility] Clinics 2020-08-18 2020-08-18 Outpatient ERICKSON_R [facility] [id number] [place] 01:02:00 01:02:00 110 Commun i ty Hospita [facility] Clinics 2020-08-15 2020-08-15 Outpatient ERICKSON_R [facility] [id number] [place] 05:48:00 05:48:00 107 Commun i ty Hospita l Clinics 2020-08-12 2020-08-12 Outpatient ERICKSON_R [facility] [id number] [place] 09:14:00 09:14:00 104 Commun i ty Hospita [facility] Clinics 2020-08-12 2020-08-12 Outpatient Keagan [facility] [id number] 00:00:00 00:00:00 Aneudy [id number] Jaden [id number] 2020-08-12 2020-08-12 Aneudy [facility] [place] [id number] [place] 00:00:00 00:00:00 [facility] - ty DO: [address] Hospit a [facility], HOSPITAL [place], [place] CLINIC, [address] KEAGAN , Ph. 2020-08-05 2020-08-05 Outpatient KEAGAN_R [facility] [id number] [place] 10:33:00 10:33:00 228 Commun i ty Hospita [facility] 2020-07-16 2020-07-16 [facility] [place] [id number] [place] 00:00:00 00:00:00 [facility] DO: [address] Hospit [facility], HOSPITAL [facility], [address] KEAGAN , Ph. 2020-07-12 2020-07-12 [facility] [place] [id number] [place] 00:00:00 00:00:00 [facility] DO: [address] [facility] Hospit [facility], HOSPITAL [place], [place] CLINIC, [address] KEAGAN , Ph. [phone] Results Test Description Test Time Test Comments Results Result Comments Source Urinalysis macro (dipstick) panel - Urine 2022-02-17 12:10:0 0 Test Item Value Reference Range Interpretation Comme nts Leukocytes (test code = Leukocytes) Negative Nitrite (test code = Nitrite) negative Urobilinogen (test code = Urobilinogen) .2 Protein (test code = Protein) 2000+ pH (test code = pH) 6.5 Blood (test code = Blood) Moderate Specific [place] (test code = Specific [place]) 1.020 Ketone (test code = Ketone) Trace Bilirubin (test code = Bilirubin) Small Glucose (test code = Glucose) Negative Appearance (test code = Appearance) Slightly Cloudy Color (test code = Color) Dark Yellow [facility] (dipstick) panel - Urine 2022-02-17 12:10:00 Test Item Value Reference Range Interpretation Comments Leukocytes (test code = Negative Leukocytes) Nitrite (test code = Nitrite) negative Urobilinogen (test code = .2 Urobilinogen) Protein (test code = Protein) 2000+ pH (test code = pH) 6.5 Blood (test code = Blood) Moderate Specific [place] (test code = 1.020 Specific [place]) Ketone (test code = Ketone) Trace Bilirubin (test code = Small Bilirubin) Glucose (test code = Glucose) Negative Appearance (test code = Slightly Cloudy Appearance) Color (test code = Color) Dark Yellow [facility] (COVID-19) Ag [Presence] in Respiratory specimen by Rapid [id number] 11:17:00 Test Item Value Reference Range Interpretation Comments SARS CoV 2 (test code = SARS CoV 2) negative [facility] W Auto Differential panel - [id number] 00:00:00 Test Item Value Reference Range Interpretation Comments Leukocytes [#/volume] in Blood 8.7 x10e3/uL 3.4-10.8 by Automated count (test code = 6690-2) Erythrocytes [#/volume] in 5.29 x10e6/uL 4.14-5.80 Blood by Automated count (test code = 789-8) Hemoglobin [Mass/volume] in 15.8 g/dL 13.0-17.7 Blood (test code = 718-7) Hematocrit [Volume Fraction] of 46.9 % 37.5-51.0 Blood by Automated count (test code = 4544-3) Erythrocyte mean corpuscular 89 fL 79-97 volume [Entitic volume] by Automated count (test code = 787-2) Erythrocyte mean corpuscular 29.9 pg 26.6-33.0 hemoglobin [Entitic mass] by Automated count (test code = 785-6) Erythrocyte mean corpuscular 33.7 g/dL 31.5-35.7 hemoglobin concentration [Mass/volume] by Automated count (test code = 786-4) Erythrocyte distribution width 12.6 % 11.6-15.4 [Ratio] by Automated count (test code = 788-0) Platelets [#/volume] in Blood 217 x10e3/uL 150-450 by Automated count (test code = 777-3) Neutrophils/100 leukocytes in 61 % not estab. Blood by Automated count (test code = 770-8) Lymphocytes/100 leukocytes in 28 % not estab. Blood by Automated count (test code = 736-9) Monocytes/100 leukocytes in 8 % not estab. Blood by Automated count (test code = 5905-5) Eosinophils/100 leukocytes in 2 % not estab. Blood by Automated count (test code = 713-8) Basophils/100 leukocytes in 1 % not estab. Blood by Automated count (test code = 706-2) immature cells (test code = shotblaster immature cells) Neutrophils [#/volume] in Blood 5.3 x10e3/uL 1.4-7.0 by Automated count (test code = 751-8) Lymphocytes [#/volume] in Blood 2.5 x10e3/uL 0.7-3.1 by Automated count (test code = 731-0) Monocytes [#/volume] in Blood 0.7 x10e3/uL 0.1-0.9 by Automated count (test code = 742-7) Eosinophils [#/volume] in Blood 0.2 x10e3/uL 0.0-0.4 by Automated count (test code = 711-2) Basophils [#/volume] in Blood 0.1 x10e3/uL 0.0-0.2 by Automated count (test code = 704-7) Immature granulocytes/100 0 % not estab. leukocytes in Blood by Automated count (test code = 28194-9) Immature granulocytes 0.0 x10e3/uL 0.0-0.1 [#/volume] in Blood by Automated count (test code = 88088-0) Nucleated erythrocytes/100 shotblaster leukocytes [Ratio] in Blood by Automated count (test code = 62502-8) Morphology [Interpretation] in shotblaster Blood Narrative (test code = 92696-9) [facility] - Serum or [id number] 00:00:00 Test Item Value Reference Range Interpretation Comments Glucose [Mass/volume] in 97 mg/dL 65-99 Serum or Plasma (test code = 2345-7) Urea nitrogen [Mass/volume] 13 mg/dL 6-20 in Serum or Plasma (test code = 3094-0) Creatinine [Mass/volume] in 0.97 mg/dL 0.76-1.27 Serum or Plasma (test code = 2160-0) Glomerular filtration 112 mL/min/1.73 >59 rate/1.73 sq M.predicted among non-blacks [Volume Rate/Area] in Serum, Plasma or Blood by Creatinine-based formula (CKD-EPI) (test code = 20712-6) Glomerular filtration 129 mL/min/1.73 >59 rate/1.73 sq M.predicted among blacks [Volume Rate/Area] in Serum, Plasma or Blood by Creatinine-based formula (CKD-EPI) (test code = 46831-6) Urea nitrogen/Creatinine 13 9-20 [Mass Ratio] in Serum or Plasma (test code = 3097-3) Sodium [Moles/volume] in 138 mmol/L 134-144 Serum or Plasma (test code = 2951-2) Potassium [Moles/volume] in 3.9 mmol/L 3.5-5.2 Serum or Plasma (test code = 2823-3) Chloride [Moles/volume] in 104 mmol/L 96-106 Serum or Plasma (test code = 2075-0) Carbon dioxide, total 22 mmol/L 20-29 [Moles/volume] in Serum or Plasma (test code = 2027-) Calcium [Mass/volume] in 9.7 mg/dL 8.7-10.2 Serum or Plasma (test code = 84127-3) Protein [Mass/volume] in 7.2 g/dL 6.0-8.5 Serum or Plasma (test code = 2885-2) Albumin [Mass/volume] in 4.4 g/dL 4.1-5.2 Serum or Plasma (test code = 1751-7) Globulin [Mass/volume] in 2.8 g/dL 1.5-4.5 Serum by calculation (test code = 20739-6) Albumin/Globulin [Mass Ratio] 1.6 1.2-2.2 in Serum or Plasma (test code = 1759-0) Bilirubin.total [Mass/volume] 0.3 mg/dL 0.0-1.2 in Serum or Plasma (test code = 1974-) Alkaline phosphatase 95 IU/L 39-117 [Enzymatic activity/volume] in Serum or Plasma (test code = 6768-6) Aspartate aminotransferase 24 IU/L 0-40 [Enzymatic activity/volume] in Serum or Plasma (test code = 192-8) Alanine aminotransferase 43 IU/L 0-44 [Enzymatic activity/volume] in Serum or Plasma (test code = 1742-6) [facility] - Serum or [id number] 00:00:00 Test Item Value Reference Range Interpretation Comments Cholesterol [Mass/volume] in Serum 142 mg/dL 100-199 or Plasma (test code = 2093-3) Triglyceride [Mass/volume] in Serum 100 mg/dL 0-149 or Plasma (test code = 2571-8) Cholesterol in HDL [Mass/volume] in 24 mg/dL >39 L Serum or Plasma (test code = 2085-9) Cholesterol in VLDL [Mass/volume] 19 mg/dL 5-40 in Serum or Plasma by calculation (test code = 86853-0) Cholesterol in LDL [Mass/volume] in 99 mg/dL 0-99 Serum or Plasma by calculation (test code = 11672-0) Laboratory comment [Text] in Report shotblaster Narrative (test code = 52357-9) [facility] A[facility]/Hemoglobin.total in Blood 2020-07-13 00:00:00 Test Item Value Reference Range Interpretation Comments Hemoglobin A1c/Hemoglobin.total in 5.1 % 4.8-5.6 Blood (test code = 4548-4) [facility] macro (dipstick) panel - Urine 2020-07-12 10:02:00 Test Item Value Reference Range Interpretation Comments Leukocytes (test code = Leukocytes) Negative Nitrite (test code = Nitrite) negative Urobilinogen (test code = .2 Urobilinogen) Protein (test code = Protein) Trace pH (test code = pH) 7.0 Blood (test code = Blood) Moderate Specific [place] (test code = 1.015 Specific [place]) Ketone (test code = Ketone) Negative Bilirubin (test code = Bilirubin) Negative Glucose (test code = Glucose) Negative Appearance (test code = Appearance) Cloudy Color (test code = Color) Yellow [facility]
[2022-09-23 06:30] LABS: Absolute Lymphocytes (CBC) 1.7 K/uL (0.7-4.9); Hematocrit 49.6 % (39.6-49.0); Lymphocytes % 21.7 % (15.3-44.8); MCV 87.5 fL (80-100); MPV 8.5 fL (7.6-11.3); RBC Red Blood Cell Count 5.67 M/uL (4.33-5.43)
[2022-09-23] MEDS ORDERED: AMLODIPINE 5 MG TAB ONE (06:30)
[2022-09-23] MEDS ORDERED: LABETALOL HCL 100 MG TAB ONE ×2 (06:30→06:54)
[2022-09-23] MEDS ORDERED: LABETALOL 20 MG/4ML SYRINGE IV ONE ×8 (06:30→23:02)
[2022-09-23 06:35] LABS: Protime INR 1.02
[2022-09-23 06:48] LABS: Albumin 3.7 g/dL (3.4-5.0); Bilirubin Direct 0.1 mg/dL (0-0.2); Bilirubin Total 0.4 mg/dL (0.2-1.0); Magnesium 2.3 mg/dL (1.6-2.4); Potassium 3.7 mmol/L (3.5-5.1); Protein, Total 7.2 g/dL (6.4-8.2); Troponin High Sensitivity 24.9 pg/mL (<58.9)
--- NOTE | 2022-09-23 06:57 | ER ---
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 Coronavirus screen: Vaccine status: Patient reports receiving the 2nd dose of the covid vaccine. At this time, the client does not indicate any symptoms associated with coronavirus-19. Ebola Screen: No symptoms or risks identified at this time. Initial Sepsis Screen: Does the patient meet any 2 criteria? No. Patient's initial sepsis screen is negative. Does the patient have a suspected source of infection? No. Patient's initial sepsis screen is negative. Risk Assessment: Do you want to hurt yourself or someone else? Patient reports no desire to harm self or others. Onset of symptoms was September 23, 2022 at 05:45. 06:32 Method Of Arrival: Ambulatory ll3 06:32 Acuity: CASH 2 ll3 Triage Assessment: 06:35 General: Appears comfortable, Behavior is calm, cooperative. Pain: Denies pain. EENT: ll3 Nares with bleeding noted bilaterally. Cardiovascular: Denies chest pain, nausea, shortness of breath, Patient's skin is warm and dry. Respiratory: Respiratory effort is even, unlabored, Respiratory pattern is regular, symmetrical. Historical: - Allergies: 06:35 No Known Allergies; ll3 - Home Meds: 06:35 amlodipine oral [Active]; metoprolol [Active]; losartan oral [Active]; ll3 - PMHx: 06:35 Hypertensive disorder; ll3 - PSHx: 06:35 None; ll3 - Immunization history:: Client reports receiving the 2nd dose of the Covid vaccine. - Social history:: Smoking status: Reported history of juuling and/or vaping. - Family history:: not pertinent. Screenin:20 [facility] ED Fall Risk Assessment (Adult) History of falling in the last 3 months, db including since admission No falls in past 3 months (0 pts) Confusion or Disorientation No (0 pts) Intoxicated or Sedated No (0 pts) Impaired Gait No (0 pts) Mobility Assist Device Used No (0 pt) Altered Elimination No (0 pt) Score/Fall Risk Level 0 - 2 = Low Risk Oriented to surroundings, Maintained a safe environment. Abuse screen: Denies threats or abuse. Denies injuries from another. Nutritional screening: No deficits noted. Tuberculosis screening: No symptoms or risk factors identified. Assessment: 07:19 Reassessment: Patient appears in no apparent distress at this time. Patient and/or db family updated on plan of care and expected duration. Pain level reassessed. Patient is alert, oriented x 3, equal unlabored respirations, skin warm/dry/pink. patient complains of nose bleed. non compliant with BP medications states is out of them x 1 week. patient in NAD. Denies pain at this time. General: Appears in no apparent distress. comfortable, Behavior is calm, cooperative. Pain: Denies pain. Neuro: Level of Consciousness is awake, alert, obeys commands, Oriented to person, place, time, situation. Respiratory: Airway is patent Respiratory effort is even, unlabored, Respiratory pattern is regular, symmetrical. 07:45 Reassessment: patient returned to room from ultrasound. db 09:00 Reassessment: Patient appears in no apparent distress at this time. Patient and/or db family updated on plan of care and expected duration. Pain level reassessed. Patient is alert, oriented x 3, equal unlabored respirations, skin warm/dry/pink. 10:00 Reassessment: Patient appears in no apparent distress at this time. Patient and/or db family updated on plan of care and expected duration. Pain level reassessed. Patient is alert, oriented x 3, equal unlabored respirations, skin warm/dry/pink. 11:23 Reassessment: Patient appears in no apparent distress at this time. Patient and/or db family updated on plan of care and expected duration. Pain level reassessed. Patient is alert, oriented x 3, equal unlabored respirations, skin warm/dry/pink. 13:18 Reassessment: Patient appears in no apparent distress at this time. Patient and/or db family updated on plan of care and expected duration. Pain level reassessed. Patient is alert, oriented x 3, equal unlabored respirations, skin warm/dry/pink. see [facility] for admission charting. Vital Signs: 06:32 BP 244 / 170; Pulse 89; Resp 18; Temp 98.7(O); Pulse Ox 99% on R/A; Weight 154.22 kg ll3 (R); Height 6 ft. 5 in. (195.58 cm) (R); Pain 0/10; 07:00 BP 225 / 143; Pulse 75; Resp 18; Pulse Ox 100% on R/A; db 07:45 BP 210 / 135 LA; Pulse 71; Resp 16; Pulse Ox 100% on R/A; db 07:50 BP 203 / 142 RA; Pulse 72; Resp 18; Pulse Ox 99% on R/A; db 08:05 BP 206 / 125; Pulse 75; Resp 18; Pulse Ox 100% on R/A; db 08:45 BP 200 / 120; Pulse 70; Resp 18; Pulse Ox 100% ; db 09:30 BP 183 / 113; Pulse 64; Resp 16; Pulse Ox 100% on R/A; db 10:30 BP 186 / 118; Pulse 59; Resp 18; Pulse Ox 97% on R/A; db 11:00 BP 188 / 111; Pulse 71; Resp 16; Pulse Ox 99% on R/A; db 06:32 Body Mass Index 40.32 (154.22 kg, 195.58 cm) ll3 Vitals: 07:00 Cardiac Rhythm Assessment Regular Sinus rhythm. ED Course: 05:56 Patient arrived in ED. ja2 06:11 Alex Gonzalez MD is Attending Physician. mami 06:35 Triage completed. ll3 06:35 Arm band placed on Patient placed in an exam room, on a stretcher, on transportation maintenance specialist, ll3 on pulse oximetry. 06:37 Initial lab(s) drawn, by me, sent to lab. X-ray(s) taken. Inserted saline lock: 20 ll3 gauge in right antecubital area, using aseptic technique. Blood collected. 06:50 Rosendo Schmidt MD is Hospitalizing Provider. mami 07:11 Ekaterina Napoles, LILLY is Primary Nurse. db 07:22 Patient has correct armband on for positive identification. Bed in low position. Call db light in reach. Side rails up X 1. Client placed on continuous cardiac and pulse oximetry monitoring. NIBP monitoring applied. Warm blanket given. 13:18 No provider procedures requiring assistance completed. Patient admitted, IV remains in db place. Administered Medications: 06:35 Drug: Labetalol 20 mg Route: IV; Rate: per protocol; Infused Over: 2 mins; Site: right [facility] antecubital; 07:18 Follow up: Response: No adverse reaction; IV Status: Completed infusion db 06:38 Drug: Labetalol 200 mg Route: PO; ha1 07:19 Follow up: Response: No adverse reaction db 06:39 Drug: Norvasc (amlodipine) 10 mg Route: PO; ha1 07:18 Follow up: Response: No adverse reaction db 06:57 Drug: Losartan-Hydrochlorothiazide 100 mg-25 mg 1 tablet Route: PO; 3 07:19 Follow up: Response: No adverse reaction db 06:58 Drug: Labetalol 40 mg Route: IV; Rate: per protocol; Infused Over: 2 mins; Site: right 3 antecubital; 07:19 Follow up: Response: No adverse reaction; IV Status: Completed infusion db 07:18 Drug: Labetalol 40 mg Route: IV; Rate: per protocol; Infused Over: 2 mins; Site: right antecubital; 07:52 Follow up: Response: No adverse reaction; IV Status: Completed infusion db 08:00 Drug: Labetalol 40 mg Route: IV; Rate: per protocol; Infused Over: 2 mins; Site: right antecubital; 11:22 Follow up: Response: No adverse reaction; IV Status: Completed infusion db Medication: 13:18 VIS not applicable for this client. db Outcome: 06:56 Decision to Hospitalize by Provider. mami 13:19 Admitted to db 13:19 Condition: stable 13:19 Instructed on the need for admit. 09/24 10:15 Patient left the ED. db Signatures: Alex Gonzalez MD MD cha Alexander, Jessica ja2 Loubet, Lynsea, LILLY RN 3 Phyllis Alexis, LILLY RN 1 Ekaterina Napoles RN RN db Corrections: (The following items were deleted from the chart) 09/23 07:50 07:45 BP 210 / 135; Pulse 71bpm; Resp 16bpm; Pulse Ox 100% RA; db db
--- NOTE | 2022-09-23 06:57 | EDPHYS ---
Physician Documentation [facility] Name: Lv Gonzalez Age: 22 yrs Sex: Male : 2000 Arrival Date: 09/23/2022 Time: 05:56 Bed 14 Private MD: ED Physician Alex Gonzalez HPI: 09/23 06:46 This 22 yrs old Black Male presents to ER via Ambulatory with complaints of Nose Bleed. mami 06:46 The patient presents with a nose bleed, that is apparently anterior, occurred HTN. mami Onset: The symptoms/episode began/occurred 1 day(s) ago. Modifying factors: The symptoms are alleviated by nothing. anti-hypertensive medication(s), the symptoms are aggravated by blowing nose. Associated signs and symptoms: Loss of consciousness: the patient experienced no loss of consciousness. Severity of symptoms: At their worst the symptoms were moderate in the emergency department the symptoms are unchanged. The patient has experienced similar episodes in the past, several times. Historical: - Allergies: 06:35 No Known Allergies; ll3 - Home Meds: 06:35 amlodipine oral [Active]; metoprolol [Active]; losartan oral [Active]; ll3 - PMHx: 06:35 Hypertensive disorder; ll3 - PSHx: 06:35 None; ll3 - Immunization history:: Client reports receiving the 2nd dose of the Covid vaccine. - Social history:: Smoking status: Reported history of juuling and/or vaping. - Family history:: not pertinent. ROS: 06:46 Constitutional: Negative for fever, chills, and weight loss, Eyes: Negative for injury, mami pain, redness, and discharge, Neck: Negative for injury, pain, and swelling, Cardiovascular: Negative for chest pain, palpitations, and edema, Respiratory: Negative for shortness of breath, cough, wheezing, and pleuritic chest pain, Abdomen/GI: Negative for abdominal pain, nausea, vomiting, diarrhea, and constipation, Back: Negative for injury and pain, : Negative for injury, bleeding, discharge, and swelling, MS/Extremity: Negative for injury and deformity, Skin: Negative for injury, rash, and discoloration, Neuro: Negative for headache, weakness, numbness, tingling, and seizure, Psych: Negative for depression, anxiety, suicide ideation, homicidal ideation, and hallucinations, Allergy/Immunology: Negative for hives, rash, and allergies, Endocrine: Negative for neck swelling, polydipsia, polyuria, polyphagia, and marked weight changes, Hematologic/Lymphatic: Negative for swollen nodes, abnormal bleeding, and unusual bruising. 06:46 ENT: Positive for nose bleed. Exam: 06:46 Constitutional: This is a well developed, well nourished patient who is awake, alert, mami and in no acute distress. Head/Face: Normocephalic, atraumatic. Eyes: Pupils equal round and reactive to light, extra-ocular motions intact. Lids and lashes normal. Conjunctiva and sclera are non-icteric and not injected. Cornea within normal limits. Periorbital areas with no swelling, redness, or edema. Neck: Trachea midline, no thyromegaly or masses palpated, and no cervical lymphadenopathy. Supple, full range of motion without nuchal rigidity, or vertebral point tenderness. No Meningismus. Chest/axilla: Normal chest wall appearance and motion. Nontender with no deformity. No lesions are appreciated. Cardiovascular: Regular rate and rhythm with a normal S1 and S2. No gallops, murmurs, or rubs. Normal PMI, no JVD. No pulse deficits. Respiratory: Lungs have equal breath sounds bilaterally, clear to auscultation and percussion. No rales, rhonchi or wheezes noted. No increased work of breathing, no retractions or nasal flaring. Abdomen/GI: Soft, non-tender, with normal bowel sounds. No distension or tympany. No guarding or rebound. No evidence of tenderness throughout. Back: No spinal tenderness. No costovertebral tenderness. Full range of motion. Male : Normal genitalia with no discharge or lesions. Skin: Warm, dry with normal turgor. Normal color with no rashes, no lesions, and no evidence of cellulitis. MS/ Extremity: Pulses equal, no cyanosis. Neurovascular intact. Full, normal range of motion. Neuro: Awake and alert, GCS 15, oriented to person, place, time, and situation. Cranial nerves II-XII grossly intact. Motor strength 5/5 in all extremities. Sensory grossly intact. Cerebellar exam normal. Normal gait. Psych: Awake, alert, with orientation to person, place and time. Behavior, mood, and affect are within normal limits. 06:46 ENT: Nose: clotted blood, in right nare, in left nare, in both nares, Examination of the other nostril shows no obvious abnormality. Vital Signs: 06:32 BP 244 / 170; Pulse 89; Resp 18; Temp 98.7(O); Pulse Ox 99% on R/A; Weight 154.22 kg ll3 (R); Height 6 ft. 5 in. (195.58 cm) (R); Pain 0/10; 07:00 BP 225 / 143; Pulse 75; Resp 18; Pulse Ox 100% on R/A; db 07:45 BP 210 / 135 LA; Pulse 71; Resp 16; Pulse Ox 100% on R/A; db 07:50 BP 203 / 142 RA; Pulse 72; Resp 18; Pulse Ox 99% on R/A; db 08:05 BP 206 / 125; Pulse 75; Resp 18; Pulse Ox 100% on R/A; db 08:45 BP 200 / 120; Pulse 70; Resp 18; Pulse Ox 100% ; db 09:30 BP 183 / 113; Pulse 64; Resp 16; Pulse Ox 100% on R/A; db 10:30 BP 186 / 118; Pulse 59; Resp 18; Pulse Ox 97% on R/A; db 11:00 BP 188 / 111; Pulse 71; Resp 16; Pulse Ox 99% on R/A; db 06:32 Body Mass Index 40.32 (154.22 kg, 195.58 cm) ll3 MDM: 06:11 Patient medically screened. [facility] 06:57 Differential diagnosis: spontaneous epistaxis. Data reviewed: vital signs, nurses [facility] notes, lab test result(s), EKG, radiologic studies, plain films. Consideration of Admission/Observation Patient was admitted/placed on observation. Escalation of care including admission/observation considered. I considered the following discharge prescriptions or medication management in the emergency department Medications were administered in the Emergency Department. See MAR. Test considered but Not performed: CT: CT HEAD NOT DONE. Care significantly affected by the following chronic conditions: Hypertension. 09/23 06:14 Order name: Basic Metabolic Panel [facility] 09/23 06:14 Order name: CBC with Diff [facility] 09/23 06:14 Order name: LFT's [facility] 09/23 06:14 Order name: Magnesium [facility] 09/23 06:14 Order name: NT PRO-BNP [facility] 09/23 06:14 Order name: PT-INR [facility] 09/23 06:14 Order name: Troponin HS [facility] 09/23 06:30 Order name: CBC with Automated Diff; Complete Time: 06:45 EDMS 09/23 06:35 Order name: Protime (+INR); Complete Time: 06:45 EDMS 09/23 06:49 Order name: Basic Metabolic Panel; Complete Time: 06:59 EDMS 09/23 06:49 Order name: Liver (Hepatic) Function; Complete Time: 06:59 EDMS 09/23 06:49 Order name: Troponin High Sensitivity; Complete Time: 06:59 EDMS 09/23 06:49 Order name: NT PRO-BNP; Complete Time: 06:59 EDMS 09/23 06:49 Order name: Magnesium; Complete Time: 06:59 EDMS 09/23 06:14 Order name: XRAY Chest (1 view) [facility] 09/23 07:01 Order name: US Rp Exam Complete [facility] 09/23 07:29 Order name: Echo w/ Doppler [facility] 09/23 07:50 Order name: RAD; Complete Time: 18:02 EDMA 09/23 08:04 Order name: US; Complete Time: 18:02 EDMS 09/23 10:01 Order name: SARS-COV-2 Antigen Rapid 09/23 12:00 Order name: SARS-COV-2 Antigen Rapid; Complete Time: 18:02 EDMS 09/23 12:44 Order name: Troponin High Sensitivity; Complete Time: 18:02 EDMS 09/23 12:52 Order name: Phosphorus; Complete Time: 18:02 EDMA 09/23 12:52 Order name: T4 Free; Complete Time: 18:02 EDMA 09/23 12:52 Order name: Magnesium; Complete Time: 18:02 EDMS 09/23 12:52 Order name: Thyroid Stimulating Hormone; Complete Time: 18:02 EDMS 09/23 19:01 Order name: Troponin High Sensitivity EDMA 09/24 02:30 Order name: CBC with Automated Diff EDMA 09/24 02:39 Order name: Basic Metabolic Panel EDMA 09/23 06:14 Order name: EKG; Complete Time: 06:15 [facility] 09/23 06:14 Order name: Cardiac monitoring; Complete Time: 06:59 [facility] 09/23 06:14 Order name: EKG - Nurse/Tech; Complete Time: 06:59 mami 09/23 06:14 Order name: IV Saline Lock; Complete Time: 06:37 mami 09/23 06:14 Order name: Labs collected and sent; Complete Time: 06:37 mami 09/23 06:14 Order name: O2 Per Protocol; Complete Time: 06:37 mami 09/23 06:14 Order name: O2 Sat Monitoring; Complete Time: 06:37 mami 09/23 07:28 Order name: Bilateral blood pressure; Complete Time: 07:52 mami Administered Medications: 06:35 Drug: Labetalol 20 mg Route: IV; Rate: per protocol; Infused Over: 2 mins; Site: right [facility] antecubital; 07:18 Follow up: Response: No adverse reaction; IV Status: Completed infusion db 06:38 Drug: Labetalol 200 mg Route: PO; 1 07:19 Follow up: Response: No adverse reaction db 06:39 Drug: Norvasc (amlodipine) 10 mg Route: PO; 1 07:18 Follow up: Response: No adverse reaction db 06:57 Drug: Losartan-Hydrochlorothiazide 100 mg-25 mg 1 tablet Route: PO; 3 07:19 Follow up: Response: No adverse reaction db 06:58 Drug: Labetalol 40 mg Route: IV; Rate: per protocol; Infused Over: 2 mins; Site: right 3 antecubital; 07:19 Follow up: Response: No adverse reaction; IV Status: Completed infusion db 07:18 Drug: Labetalol 40 mg Route: IV; Rate: per protocol; Infused Over: 2 mins; Site: right db antecubital; 07:52 Follow up: Response: No adverse reaction; IV Status: Completed infusion db 08:00 Drug: Labetalol 40 mg Route: IV; Rate: per protocol; Infused Over: 2 mins; Site: right db antecubital; 11:22 Follow up: Response: No adverse reaction; IV Status: Completed infusion db Disposition Summary: 09/23/22 06:56 Hospitalization Ordered Provider: Rosendo Schmidt cha Condition: Fair mami Problem: an acute exacerbation mami Symptoms: have improved mami Bed/Room Type: Standard mami Hospitalization Status: Observation(09/23/22 07:28) mami Location: [facility] ER HOLD(09/23/22 19:07) cg Room Assignment: ERHOLD-(09/23/22 19:07) cg Diagnosis - Epistaxis mami - Hypertensive crisis, unspecified mami - Unspecified kidney failure mami Discharge Instructions: - Discharge Summary Sheet db Forms: - Medication Reconciliation Form mami - SBAR form mami - Work release form db Signatures: Dispatcher [employer] Alex Deng MD MD cha Attema, Lee, MANAGER SALES-C MANAGER SALES-Cla1 Marcie Gonzalez RN RN cg Seven Paredes RN RN 3 Phyllis Alexis RN RN ha1 Ekaterina Napoles RN RN db Corrections: (The following items were deleted from the chart) 07:24 06:56 Observation mami mami 07:24 06:56 Telemetry/MedSurg (observation) mami mami 07:24 06:56 mami mami 07:28 07:24 Inpatient Admission mami mami 07:28 07:24 Telemetry/MedSurg (Inpatient) mami mami 07:28 07:24 mami mami : 07:28 Telemetry/MedSurg (observation) mami cg : 07:28 mami cg
--- NOTE | 2022-09-23 07:50 | RAD REPORT ---
[facility]40 [facility] CLINICAL HISTORY: COUGH COMPARISON: Chest Single View dated 06/24/2022 TECHNIQUE: Single AP view of the chest. FINDINGS: The lungs are clear. No pneumothorax or effusion. The cardiomediastinal contours are unrem arkable. IMPRESSION: No acute cardiopulmonary process.
--- NOTE | 2022-09-23 08:03 | RAD REPORT ---
EXAM DESCRIPTION: US - Renal ultrasound -complete - 09/23/2022 7:45 am CLINICAL HISTORY: High blood pressure. Nosebleed RENAL DOPPLER COMPARISON: No comparisons FINDINGS: Exam was technically limited due to patient's body habitus and over shadowing gas in multi ple regions. Both kidneys are normal in size, the right measuring 12.1 cm and the left measuring 12.1 cm. Incident ally noted tiny right renal mid pole anechoic cyst. Aortic velocity: 131 cm/second Right proximal renal artery: Not visualized Right mid renal artery: 74 cm/second Right distal renal artery: 54 cm/second Right renal arcuate artery resistive index: 0.5 Right renal artery / aorta ratio: 0.6 Segments of the left renal artery were not visualized given the above limitations. Left renal arcuate artery resistive index: 0.6 Left renal artery/aorta ratio: Not calculated Normal waveforms demonstrated within the visualized right renal artery and arcuate left renal artery. The visualized portions of the liver are slightly heterogeneous, could reflect underlying medical hep atocellular disease. IMPRESSION: Technically limited exam as above. No evidence of right renal artery stenosis. Nonvisualization of the left renal artery. Normal waveforms demonstrated along the arcuate left renal artery with normal resistive index. Incidental findings as above.
[2022-09-23] MEDS ORDERED: ACETAMINOPHEN 325 MG TABLET PO PRN (10:58)
[2022-09-23] MEDS ORDERED: ONDANSETRON 4 MG/2 ML VIAL IV PRN (10:59)
[2022-09-23] MEDS ORDERED: LABETALOL 20 MG/4ML SYRINGE IV PRN (11:10)
[2022-09-23] MEDS ORDERED: METOPROLOL XL 100 MG TAB PO SCH (11:30)
[2022-09-23 12:00] LABS: SARS-CoV-2 Antigen Rapid Res Negative (Negative)
--- NOTE | 2022-09-23 12:47 | P.HP ---
Certification for Inpatient Patient admitted to: Observation With expected LOS: <2 Midnights Patient will require the following post-hospital care: None Practitioner: I am a practitioner with admitting privileges, knowledge of patient current condition, hospital course, and medical plan of care. Services: Services provided to patient in accordance with Admission requirements found in Title 42 Section 412.3 of the Code of Federal Regulations Patient History Date of Service: 09/23/22 Reason for admission: Nosebleed History of Present Illness: Patient is a 22-year-old male with a past medical history significant for hypertension and morbid obesity who presents with complaint of epistaxis onset this am. Patient reported that he ran out of his medication 1 week ago and has not been taking his BP medication. Patient indicated that even with taking his home medications his SBPs has been in the 190s and 200s. Patient does not follow-up with a medical data entry clerk. Patient denies any other signs and symptoms. Symptoms are aggravated or relieved by nothing. Patient decided to present to the hospital due to worsening symptoms. Allergies No Known Allergies Allergy (Unverified 06/24/22 12:02) Home Medications: Aspirin [Aspirin EC 81 MG] 81 mg PO DAILY #30 tab 06/25/22 Hydralazine [Apresoline*] 25 mg PO TID #90 tab 06/25/22 Metoprolol Succinate [Toprol Xl] 100 mg PO DAILY #30 tab 06/25/22 - Past Medical/Surgical History -: Hypertension -: Morbid obesity. - Social History Smoking Status: Never smoker Alcohol use: Yes CD- Drugs: No Caffeine use: No Place of Residence: Home Review of Systems General: Unremarkable Eyes: Unremarkable ENT: Other (Epistaxis) Respiratory: Unremarkable Cardiovascular: Unremarkable Gastrointestinal: Unremarkable Genitourinary: Unremarkable Musculoskeletal: Unremarkable Integumentary: Unremarkable Neurological: Unremarkable Lymphatics: Unremarkable Physical Examination - Vital Signs Temperature: 98 F Blood Pressure: 181/116 Pulse: 70 Respirations: 16 Pulse Ox (%): 98 - Physical Exam General: Alert, In no apparent distress, Oriented x3, Cooperative HEENT: Atraumatic, PERRLA, Mucous membr. moist/pink, EOMI, Sclerae nonicteric Neck: Supple, 2+ carotid pulse no bruit, No LAD, Without JVD or thyroid abnormality Respiratory: Clear to auscultation bilaterally, Normal air movement Cardiovascular: No edema, Regular rate/rhythm, Normal S1 S2 Capillary refill: <2 Seconds (Call 181 over) Gastrointestinal: Normal bowel sounds, Soft and benign, No tenderness Musculoskeletal: No clubbing, No swelling, No contractures, No tenderness Integumentary: No rashes, No tenderness/swelling, No erythema Neurological: Normal gait, Normal speech, Normal strength at 5/5 x4 extr, Normal tone, Normal affect Lymphatics: No axilla or inguinal lymphadenopathy - Studies Laboratory Data (last 24 hrs) 09/23/22 06:20: PT 11.2, INR 1.02 09/23/22 06:20: WBC 7.70, Hgb 17.1, Hct 49.6 H, Plt Count 146 L 09/23/22 06:20: Sodium 139, Potassium 3.7, BUN 24 H, Creatinine 2.13 H, Glucose 105, Magnesium 2.3, Total Bilirubin 0.4, AST 21, ALT 28, Alkaline Phosphatase 77 Assessment and Plan - Plan --Epistaxis. Likely secondary to elevated blood pressure. Nosebleed resolved. H&H stable. We will continue to monitor hemoglobin. --Hypertensive urgency. Patient's home medications adjusted. Cardiology consulted. Echocardiogram pending to assess cardiac structures and functions. Will await further recommendations from medical data entry clerk. --Class III obesity. Likely secondary to excess calories intake. Patient counseled on weight reduction, diet and exercise therapy. -- STEVE on CKD 3A. Slight depreciation in renal functions noted compared to levels 3 months ago. Patient to follow-up with outpatient PCP for further management. We will continue to monitor renal functions. --Elevated BNP. Chest x-ray does not indicate any volume overload. Echocardiogram pending. Further management per medical data entry clerk. -- DVT prophylaxis with SCDs. Discharge Plan: Home Plan to discharge in: 48 Hours - Advance Directives Does patient have a Living Will: No Does patient have a Durable POA for Healthcare: No - Code Status/Comfort Care Code Status Assessed: Yes Physician Review: Patient Assessed, Agree with Above Assessment and Plan Critical Care: No
[2022-09-23 12:51] LABS: Magnesium 2.2 mg/dL (1.6-2.4); Phosphorus 4.9 mg/dL (2.5-4.9); Thyroid Stimulating Hormone 1.65 uIU/mL (0.358-3.740)
--- NOTE | 2022-09-23 12:57 | EKG ---
Test Date: 2022-09-23 Test Time: 06:43:56 Fountain Brush Assembler: MARIAN MEASUREMENT RESULTS: Intervals: Rate: 82 VA: 148 QRSD: 116 QT: 410 QTc: 479 [place]: P: 52 VA: 148 QRS: 15 T: 158 INTERPRETIVE STATEMENTS: Normal sinus rhythm Possible Left atrial enlargement Incomplete right bundle branch block ST & T wave abnormality, consider inferolateral ischemia Prolonged QT Abnormal ECG Compared to ECG 06/24/2022 07:39:01 Prolonged QT interval now present Sinus bradycardia no longer present Sinus arrhythmia no longer present ST (T wave) deviation still present Possible ischemia still present Electronically Signed On 09-23-22 12:56:46 CORE DRIER by Mathew Hammond
--- NOTE | 2022-09-23 12:57 | EKG ---
Test Date: 2022-09-23 Test Time: 06:46:29 Data Entry Processor: MARIAN MEASUREMENT RESULTS: Intervals: Rate: 74 KS: 152 QRSD: 112 QT: 426 QTc: 472 [place]: P: 51 KS: 152 QRS: 15 T: 166 INTERPRETIVE STATEMENTS: Normal sinus rhythm Possible Left atrial enlargement Incomplete right bundle branch block ST & T wave abnormality, consider inferolateral ischemia Prolonged QT Abnormal ECG Compared to ECG 09/23/2022 06:43:56 No significant changes Electronically Signed On 09-23-22 12:56:42 PRINTING PRESS OPERATOR APPRENTICE by Mathew Hammond
[2022-09-23 15:20] VITALS: BMI 40.3
[2022-09-23] MEDS ORDERED: INFLUENZA VACCINE (for 6+ mo) 0.5 ML DOSE IMVAC ONE (16:00)
[2022-09-23] MEDS: carvediloL 25 MG TAB PO SCH (18:00)
[2022-09-23] MEDS ORDERED: AMLODIPINE 10 MG TAB ONE (18:30)
[2022-09-23] MEDS ORDERED: ACETAMINOPHEN 325 MG TABLET ONE (18:30)
[2022-09-23] MEDS: AMLODIPINE 10 MG TAB PO SCH (18:32)
[2022-09-23] MEDS ORDERED: HYDRALAZINE HCL 20 MG/ML VIAL ONE (20:36)
[2022-09-23] MEDS: HYDRALAZINE HCL 20 MG/ML VIAL IV PRN (20:37)
[2022-09-24] MEDS ORDERED: HYDRALAZINE HCL 20 MG/ML VIAL ONE ×2 (02:07→08:40)
[2022-09-24] MEDS: HYDRALAZINE HCL 20 MG/ML VIAL IV PRN ×2 (02:13→08:44)
[2022-09-24 02:25] LABS: Absolute Lymphocytes (CBC) 1.6 K/uL (0.7-4.9); Hematocrit 49.3 % (39.6-49.0); Lymphocytes % 19.7 % (15.3-44.8)
[2022-09-24 02:39] LABS: Potassium 3.7 mmol/L (3.5-5.1)
[2022-09-24] MEDS ORDERED: LABETALOL 20 MG/4ML SYRINGE IV ONE ×2 (03:27→03:44)
[2022-09-24] MEDS ORDERED: carvediloL 6.25 MG TAB ONE (05:43)
[2022-09-24] MEDS: carvediloL 25 MG TAB PO SCH (05:45)
[2022-09-24 06:12] VITALS: TEMP 98.1
--- NOTE | 2022-09-24 08:24 | ECHO ---
HEIGHT: 6 ft 5 in WEIGHT: 339 lb 15.95 oz DATE OF STUDY: 09/23/[address]: Alex Gonzalez MD 2-DIMENSIONAL: YES M.MODE: YES DOPPLER: YES COLOR FLOW: YES TDS: NO PORTABLE: YES DEFINITY: NO BUBBLE STUDY: NO DIAGNOSIS: HYPERTENSION CARDIAC HISTORY: CATHERIZATION: NO SURGERY: NO PROSTHETIC VALVE: NO PACEMAKER: NO MEASUREMENTS (cm) DIASTOLIC (NORMALS) SYSTOLIC (NORMALS) IVSd 1.8 (0.6-1.2) LA Diam 3.9 (1.9-4.0) LVEF 55-60% LVIDd 4.9 (3.5-5.7) LVIDs 3.6 (2.0-3.5) %FS 27% LVPWd 1.7 (0.6-1.2) Ao Diam 3.1 (2.0-3.7) 2 DIMENSIONAL ASSESSMENT: RIGHT ATRIUM: NOT SEEN WELL LEFT ATRIUM: ENLARGED RIGHT VENTRICLE: NOT SEEN WELL LEFT VENTRICLE: SEVERE LVH TRICUSPID VALVE: NOT SEEN WELL MITRAL VALVE: MILD MR PULMONIC VALVE: NOT SEEN WELL AORTIC VALVE: NORMAL PERICARDIAL EFFUSION: NONE AORTIC ROOT: NORMAL LEFT VENTRICULAR WALL MOTION: NORMAL DOPPLER/COLOR FLOW: MILD MITRAL REGURGITATION. COMMENTS: 1. NORMAL LEFT VENTRICULAR EJECTION FRACTION 55-60%. 2. NORMAL WALL MOTION. 3. SEVERE CONCENTRIC LEFT VENTRICULAR HYPERTROPHY. 4. MODERATE DIASTOLIC DYSFUNCTION. 5. MILD MITRAL REGURGITATION. 6. LEFT ATRIAL ENLARGEMENT. TECHNOLOGIST: Jacky AWAD
[2022-09-24] MEDS ORDERED: AMLODIPINE 10 MG TAB ONE (08:40)
[2022-09-24] MEDS ORDERED: POTASSIUM 25 MEQ EFFERV TAB ONE (08:42)
[2022-09-24] MEDS: AMLODIPINE 10 MG TAB PO SCH (08:46)
[2022-09-24] MEDS ORDERED: METOPROLOL XL 100 MG TAB PO SCH (09:00)
[2022-09-24] MEDS ORDERED: KCL 20 MEQ/100 mL IVPB 20 MEQ/100 ML BAG IV SCH (09:00)
[2022-09-24 09:23] VITALS: O2SAT 99
[2022-09-24] MEDS ORDERED: POTASSIUM 25 MEQ EFFERV TAB PO ONE (09:30)
[2022-09-24 09:53] VITALS: BP 197/115
--- NOTE | 2022-09-24 21:55 | P.DS ---
Admission Date: 09/23/22 Discharge Date: 09/24/22 Disposition: AMA-LEFT AGAINST MEDICAL ADVIC Discharge Condition: GOOD Reason for Admission: Nosebleed, HTN urgency Consultations: Cardiology - Dr. Hammond Brief History of Present Illness: 22yo M, PMH: resistant HTN, morbid obesity, LVH, diastolic dysfunction. Presented to ED due to nosebleed and concern for hypertension. Patient typically develops nosebleed when blood pressure is significantly elevated. He ran out of his meds ~1 week ago. BP on presentation: 240/170; HR: 89 Denied headache, no chest pain, no shortness of breath, no lower extremity s welling. Patient was given IV pushes of anti-hypertensives with improvement of SBP ~190. Hospital Course: Patient was restarted on oral anti-hypertensives with IV breakthrough per cardiology recommendations. Blood pressure improved to 180s-190s/110s and planned to slowly titrate down as patient was asymptomatic. Echocardiogram was obtained and similar to prior a few months ago - moderate diastolic dysunction with severe concentric LVH. Patient reported prior extensive workup but unable to be specify. States he had the "whole 9-yards" and just told it was due to his diet or weight. Denies sleep study but has snored and wakes with headaches at times. On 09/24, patient became frustrated and upset his blood pressure was not down to normal yet, no bed upstairs for him to be transferred to (has been a ER hold overnight), so he decided to leave against medical advice and go to a different hospital. Discusses risk of leaving AMA. Explained treatment plan and unclear etiology. Cardiology recommended CTA to r/o coarctation. Patient refused, signed AMA, and left. Advised patient go straight to a hospital and not home for further management. Time spent counselling patient: 35 minutes Vital Signs/Physical Exam: Temp Pulse Resp BP Pulse Ox 98.1 F 82 20 197/115 H 98 09/24/22 07:38 09/24/22 09:00 09/24/22 09:00 09/24/22 09:00 09/24/22 09:00 General: Alert, In no apparent distress, Oriented x3 HEENT: EOMI, Sclerae nonicteric Respiratory: Clear to auscultation bilaterally, Normal air movement Cardiovascular: No edema, Regular rate/rhythm Gastrointestinal: Soft and benign, No tenderness Musculoskeletal: No contractures, No tenderness Integumentary: No rashes, No significant lesion Neurological: Normal speech, Normal strength at 5/5 x4 extr, Normal affect Laboratory Data at Discharge: WBC 8.00 K/uL (4.3-10.9) 09/24/22 02:05 Hgb 16.5 g/dL (13.6-17.9) 09/24/22 02:05 Hct 49.3 % (39.6-49.0) H 09/24/22 02:05 Plt Count 155 K/uL (152-406) 09/24/22 02:05 PT 11.2 SECONDS (9.5-12.5) 09/23/22 06:20 INR 1.02 09/23/22 06:20 Sodium 138 mmol/L (136-145) 09/24/22 02:05 Potassium 3.7 mmol/L (3.5-5.1) 09/24/22 02:05 BUN 22 mg/dL (7-18) H 09/24/22 02:05 Creatinine 1.69 mg/dL (0.70-1.30) H 09/24/22 02:05 Glucose 114 mg/dL (74-106) H 09/24/22 02:05 Phosphorus 4.9 mg/dL (2.5-4.9) 09/23/22 12:11 Magnesium 2.2 mg/dL (1.6-2.4) 09/23/22 12:11 Total Bilirubin 0.4 mg/dL (0.2-1.0) 09/23/22 06:20 AST 21 U/L (15-37) 09/23/22 06:20 ALT 28 U/L (16-61) 09/23/22 06:20 Alkaline Phosphatase 77 U/L (45-117) 09/23/22 06:20 Home Medications: Aspirin [Aspirin EC 81 MG] 81 mg PO DAILY #30 tab 06/25/22 Hydralazine [Apresoline*] 25 mg PO TID #90 tab 06/25/22 Metoprolol Succinate [Toprol Xl] 100 mg PO DAILY #30 tab 06/25/22 Followup: OOT,OOT [Primary Care Provider] - Time spent managing pt's care (in minutes): 45
== END 2022-09-24 10:13 | disposition left against medical advice (07) ==
LOC: ER 05:53 → ERHOLD 09:55
PROVIDERS: ADMIT Hospitalist; ATTEND Hospitalist
DX: R04.0 Epistaxis (principal); I16.0 Hypertensive urgency; E66.01 Morbid (severe) obesity due to excess calories; I12.9 Hypertensive chronic kidney disease with stage 1 through stage 4 chronic kidney disease, or unspecified chronic kidney disease; N18.31 Chronic kidney disease, stage 3a; N17.9 Acute kidney failure, unspecified; Z53.29 Procedure and treatment not carried out because of patient's decision for other reasons; Z91.14 Patient's other noncompliance with medication regimen; Z20.822 Contact with and (suspected) exposure to COVID-19
CPT/HCPCS: 93005 ×2; 93306; 85025 ×2; 80048 ×2; 36415 ×2; 83735 ×2; 84100; 85610; 80076; 84443; 84484 ×3; 84439; 83880; 71045; 93975; 87811; J0360 ×3; 96365; 96366; 99285; G0378

== ENCOUNTER 2024-09-27 01:18 | Emergency (ER) | payer BC, SELFPAY ==
--- OUTSIDE RECORDS SUMMARY | 2024-09-27 01:21 | XMS REPORT | Continuity of Care Document ---
Author Name Unknown Address [address] [facility] [address] [place] [address] [facility] thconnect Address [address] [facility] [address] [place] [address] Care Team Providers Care Fishing Instructor Name Role Phone EMI Attending Clinician Unavailable Aneudy Boogie Attending Clinician [phone] WILDER TORRES Attending Clinician ZACK Blum Attending Clinician Unavailab Osborn Admitting Clinician Unavailable WILDER TORRES Admitting Clinician Teja saravia Payers Payer Name Policy Type Policy Number Effective Date Expirati on Date Source [place]: ANTHEM BLUE CROSS (PPO) [id number] 2021 00:00:00 [place] [id number] 2019 00:00:00 Problems Condition Name Condition Details Condition Category Status Onset Date Resolution Date Last Treatment Date Treating Clinician Comments Source Chronic kidney disease stage 3B Chronic Kidney Disease Stage 3B Problem Active 03-03 00:00: 00 [facility] Hypertensi ve disorder Hypertensi ve Disorder Problem Active 2019-08 00:00: 00 [facility] Blood in urine Blood in Urine Problem Active 2019-08 00:00: 00 [facility] Essential hypertensi on Essential Hypertensi on Problem Active 2018-08 00:00: 00 [facility] Allergies, Adverse Reactions, Alerts Allergy Name Allergy Type Status Severity Reaction(s) Onset Date Inactive Date Treating Clinician Comments Source Iodine Allergy to substanc e Active Moderate Facial swelling [facility] IODINE AND IODIDE CONTAINI NG PRODUCTS Allergy to substanc e Active Severe [facility] Social History Smoking Status Start Date Stop Date Source Current Every Day Smoker [facility] Medications Ordered Medication Name Filled Medication Name Start Date Stop Date Current Medication? Ordering Clinician Indication Dosage Frequency Signature (SIG) Comments Components Source carvedilol 25 mg tablet Take 1 tablet twice a day by oral route. carvedilol 25 mg tablet Take 1 tablet twice a day by oral route. No 1 BID carvedilol 25 mg tablet Take 1 tablet twice a day by oral route. [facility] hydrochloro thiazide 25 mg tablet TAKE 1 TABLET BY MOUTH EVERY DAY hydrochloro thiazide 25 mg tablet TAKE 1 TABLET BY MOUTH EVERY DAY No hydrochlor othiazide 25 mg tablet TAKE 1 TABLET BY MOUTH EVERY DAY [facility] losartan 100 mg tablet TAKE 1 TABLET BY MOUTH EVERY DAY losartan 100 mg tablet TAKE 1 TABLET BY MOUTH EVERY DAY No losartan 100 mg tablet TAKE 1 TABLET BY MOUTH EVERY DAY [facility] Exforge HCT 10 mg-320 mg-25 mg tablet Take 1 tablet every day by oral route. Exforge HCT 10 mg-320 mg-25 mg tablet Take 1 tablet every day by oral route. No 1 Q1D Exforge HCT 10 mg-320 mg-25 mg tablet Take 1 tablet every day by oral route. [facility] amlodipine 10 mg-valsarta n 320 mg tablet TAKE 1 TABLET BY MOUTH EVERY DAY amlodipine 10 mg-valsarta n 320 mg tablet TAKE 1 TABLET BY MOUTH EVERY DAY No amlodipine 10 mg-valsart an 320 mg tablet TAKE 1 TABLET BY MOUTH EVERY DAY [facility] metoprolol succinate ER 50 mg tablet,exte nded release 24 hr Take 1 tablet every day by oral route. metoprolol succinate ER 50 mg tablet,exte nded release 24 hr Take 1 tablet every day by oral route. No 1 Q1D metoprolol succinate ER 50 mg tablet,ext ended release 24 hr Take 1 tablet every day by oral route. [facility] amlodipine 10 mg-valsarta n 320 mg tablet Take 1 tablet every day by oral route for 30 days. amlodipine 10 mg-valsarta n 320 mg tablet Take 1 tablet every day by oral route for 30 days. No 1 Q1D amlodipine 10 mg-valsart an 320 mg tablet Take 1 tablet every day by oral route for 30 days. [facility] hydrochloro thiazide 25 mg tablet Take 1 tablet every day by oral route for 30 days. hydrochloro thiazide 25 mg tablet Take 1 tablet every day by oral route for 30 days. No 1 Q1D hydrochlor othiazide 25 mg tablet Take 1 tablet every day by oral route for 30 days. [facility] metoprolol succinate ER 50 mg tablet,exte nded release 24 hr Take 1 tablet every day by oral route for 30 days. metoprolol succinate ER 50 mg tablet,exte nded release 24 hr Take 1 tablet every day by oral route for 30 days. No 1 Q1D metoprolol succinate ER 50 mg tablet,ext ended release 24 hr Take 1 tablet every day by oral route for 30 days. [facility] metoprolol succinate ER 100 mg tablet,exte nded release 24 hr Take 1 tablet every day by oral route. metoprolol succinate ER 100 mg tablet,exte nded release 24 hr Take 1 tablet every day by oral route. No 1 Q1D metoprolol succinate ER 100 mg tablet,ext ended release 24 hr Take 1 tablet every day by oral route. [facility] carvedilol 6.25 mg tablet Take 1 tablet twice a day by oral route. carvedilol 6.25 mg tablet Take 1 tablet twice a day by oral route. No 1 BID carvedilol 6.25 mg tablet Take 1 tablet twice a day by oral route. [facility] carvedilol 12.5 mg tablet Take 1 tablet twice a day by oral route. carvedilol 12.5 mg tablet Take 1 tablet twice a day by oral route. No 1 BID carvedilol 12.5 mg tablet Take 1 tablet twice a day by oral route. [facility] Vital Signs Vital Name Observation Time Observation Value Comments S ource BP Diastolic 2022-03-03 00:00:00 140 mm[Hg] [facility] Height 2022-03-03 00:00:00 76 [in_i] [facility] BMI (Body Mass Index) 2022-03-03 00:00:00 42.2 kg/m2 [facility] BP Systolic 2022-03-03 00:00:00 224 mm[Hg] [facility] Body Weight 2022-03-03 00:00:00 5552 [oz_av] [facility] BP Diastolic 2022-02-17 00:00:00 148 mm[Hg] Pending sale to [facility] Height 2022-02-17 00:00:00 76 [in_i] [facility] BMI (Body Mass Index) 2022-02-17 00:00:00 42.1 kg/m2 [facility] BP Systolic 2022-02-17 00:00:00 264 mm[Hg] [facility] Body Weight 2022-02-17 00:00:00 5536 [oz_av] [facility] BP Diastolic 2021-08-11 00:00:00 124 mm[Hg] Pending sale to [facility] Height 2021-08-11 00:00:00 76 [in_i] [facility] BMI (Body Mass Index) 2021-08-11 00:00:00 43.3 kg/m2 [facility] BP Systolic 2021-08-11 00:00:00 196 mm[Hg] [facility] Body Weight 2021-08-11 00:00:00 5696 [oz_av] [facility] BP Diastolic 2021-06-02 00:00:00 100 mm[Hg] Pending sale to [facility] Height 2021-06-02 00:00:00 76 [in_i] [facility] BMI (Body Mass Index) 2021-06-02 00:00:00 43.5 kg/m2 [facility] BP Systolic 2021-06-02 00:00:00 180 mm[Hg] [facility] Body Weight 2021-06-02 00:00:00 5712 [oz_av] [facility] BP Diastolic 2021-05-02 00:00:00 108 mm[Hg] Pending sale to [facility] Height 2021-05-02 00:00:00 76 [in_i] [facility] BMI (Body Mass Index) 2021-05-02 00:00:00 43.7 kg/m2 [facility] BP Systolic 2021-05-02 00:00:00 195 mm[Hg] [facility] Body Weight 2021-05-02 00:00:00 5744 [oz_av] [facility] BP Diastolic 2020-10-21 00:00:00 104 mm[Hg] Pending sale to [facility] Height 2020-10-21 00:00:00 76 [in_i] [facility] BMI (Body Mass Index) 2020-10-21 00:00:00 42.6 kg/m2 [facility] BP Systolic 2020-10-21 00:00:00 212 mm[Hg] [facility] Body Weight 2020-10-21 00:00:00 5600 [oz_av] [facility] BP Diastolic 2020-10-14 00:00:00 102 mm[Hg] Pending sale to [facility] Height 2020-10-14 00:00:00 76 [in_i] [facility] BMI (Body Mass Index) 2020-10-14 00:00:00 42.5 kg/m2 [facility] BP Systolic 2020-10-14 00:00:00 240 mm[Hg] [facility] Body Weight 2020-10-14 00:00:00 5584 [oz_av] [facility] BP Diastolic 2020-08-12 00:00:00 128 mm[Hg] Pending sale to [facility] Height 2020-08-12 00:00:00 76 [in_i] [facility] BMI (Body Mass Index) 2020-08-12 00:00:00 42 kg/m2 [facility] BP Systolic 2020-08-12 00:00:00 212 mm[Hg] [facility] Body Weight 2020-08-12 00:00:00 5520 [oz_av] [facility] Procedures Procedure Date / Time Performed Performing Clinicia n Source Circumcision [facility] Plan of Care Planned Activity Planned Date Details Comments Source Diagnostic Test Pending 2022-02-17 00:00:00 BMP, serum or plasma [code = BMP, serum or plasma] [facility] Diagnostic Test Pending 2022-02-17 00:00:00 urinalysis, dipstick [code = urinalysis, dipstick] [facility] Encounters Start Date/Time End Date/Time Encounter Type Admission Type Attending [facility] Care Facility Care Department Encounter ID Source 2022-03-03 12:41:00 2022-03-03 12:41:00 Outpatient EMI [facility] [id number] [facility] 2022-03-03 00:00:00 2022-03-03 00:00:00 Aneudy Boogie, DO: [address] [place] [address] , Ph. [facility], DR. BOOGIE [id number] [facility] 2022-03-03 00:00:00 2022-03-03 00:00:00 Outpatient Aneudy Boogie [facility] [id number] 2022-02-17 02:10:00 2022-02-17 02:10:00 Outpatient EMI [facility] [id number] [facility] 2022-02-17 00:00:00 2022-02-17 00:00:00 Outpatient Aneudy Boogie [facility] [id number] 2022-02-17 00:00:00 2022-02-17 00:00:00 Aneudy Boogie, DO: [address] [place] [address] , Ph. [facility], DR[facility] BOOGIE [id number] [facility] 2022-02-17 00:00:00 2022-02-17 00:00:00 Outpatient Aneudy Boogie [facility] [id number] 2021-10-31 02:40:00 2021-10-31 02:40:00 Outpatient ERICKSON_R [facility] [id number] [facility] 2021-09-26 03:36:00 2021-09-26 03:36:00 Outpatient ERICKSON_R [facility] [id number] [facility] 2021-08-22 01:56:00 2021-08-22 01:56:00 Outpatient ERICKSON_R [facility] [id number] [facility] 2021-08-11 04:13:00 2021-08-11 04:13:00 Outpatient ERICKSON_R [facility] [id number] [facility] 2021-08-11 04:13:00 2021-08-11 04:13:00 Outpatient ERICKSON_R [facility] [id number] [facility] 2021-08-11 00:00:00 2021-08-11 00:00:00 Aneudy Boogie, DO: [address], [place] [address] , Ph. [facility], DR[facility] BOOGIE [id number] [facility] 2021-08-11 00:00:00 2021-08-11 00:00:00 Outpatient Aneudy Boogie [facility] [id number] 2021-06-02 10:18:00 2021-06-02 10:18:00 Outpatient ERICKSON_R [facility] [id number] [facility] 2021-06-02 00:00:00 2021-06-02 00:00:00 Aneudy Boogie, DO: [address] [place] [address] , Ph. [facility], DR[facility] BOOGIE [id number] [facility] 2021-06-02 00:00:00 2021-06-02 00:00:00 Outpatient Aneudy Boogie [facility] [id number] 2021-05-05 05:45:00 2021-05-05 05:45:00 Outpatient ERICKSON_R [facility] [id number] [facility] 2021-05-02 09:49:00 2021-05-02 09:49:00 Outpatient ERICKSON_R [facility] [id number] [facility] 2021-05-02 00:00:00 2021-05-02 00:00:00 Aneudy Boogie, DO: [address] [place] [address] , Ph. [facility], DR[facility] BOOGIE [id number] [facility] 2021-05-02 00:00:00 2021-05-02 00:00:00 Outpatient Aneudy Boogie [facility] [id number] 2021-04-29 11:47:00 2021-04-29 11:47:00 Outpatient ERICKSON_R [facility] [id number] [facility] 2021-03-05 01:49:00 2021-03-05 01:49:00 Outpatient ERICKSON_R [facility] [id number] [facility] 2021-01-29 01:36:00 2021-01-29 01:36:00 Outpatient ERICKSON_R [facility] [id number] [facility] 2020-12-01 01:06:00 2020-12-01 01:06:00 Outpatient ERICKSON_R [facility] [id number] [facility] 2020-10-27 01:02:00 2020-10-27 01:02:00 Outpatient ERICKSON_R [facility] [id number] [facility] 2020-10-21 12:42:00 2020-10-21 12:42:00 Outpatient ERICKSON_R [facility] [id number] [facility] 2020-10-21 00:00:00 2020-10-21 00:00:00 Aneudy Boogie, DO: [address] , [place] [address] , Ph. [facility], DR. BOOGIE [id number] [facility] 2020-10-21 00:00:00 2020-10-21 00:00:00 Outpatient Aneudy Boogie [facility] [id number] 2020-10-14 04:30:00 2020-10-14 04:30:00 Outpatient ERICKSON_R [facility] [id number] [facility] 2020-10-14 00:00:00 2020-10-14 00:00:00 Outpatient Aneudy Boogie [facility] [id number] 2020-10-14 00:00:00 2020-10-14 00:00:00 Aneudy Boogie, DO: [address], [place] [address] , Ph. [facility], DR[facility] BOOGIE [id number] [facility] 2020-09-22 01:03:00 2020-09-22 01:03:00 Outpatient ERICKSON_R [facility] [id number] [facility] 2020-08-18 01:02:00 2020-08-18 01:02:00 Outpatient ERICKSON_R [facility] [id number] [facility] 2020-08-15 05:48:00 2020-08-15 05:48:00 Outpatient ERICKSON_R [facility] [id number] [facility] 2020-08-12 09:14:00 2020-08-12 09:14:00 Outpatient ERICKSON_R [facility] [id number] [facility] 2020-08-12 00:00:00 2020-08-12 00:00:00 Outpatient Aneudy Boogie [facility] [id number] 2020-08-12 00:00:00 2020-08-12 00:00:00 Aneudy Boogie, DO: [address] [place] [address] , Ph. [facility], DR[facility] BOOGIE [id number] [facility] 2020-08-05 10:33:00 2020-08-05 10:33:00 Outpatient ERICKSON_R [facility] [id number] [facility] 2020-07-16 00:00:00 2020-07-16 00:00:00 Aneudy Boogie, DO: [address], [place] [address] , Ph. [facility], DR[facility] BOOGIE [id number] [facility] 2020-07-12 00:00:00 2020-07-12 00:00:00 Aneudy Boogie, DO: [address], [place] [address] , Ph. [facility], DR[facility] BOOGIE [id number] [facility] 2015-03-12 15:45:00 2015-03-13 14:54:00 Inpatient ER WILDER TORRES [facility] [id number] [facility] 2013-11-20 13:31:00 2013-11-20 16:55:00 Emergency ER ZACK HERNANDEZ [facility] [id number] [facility] Results Test Description Test Time Test Comments Results Result Co mments Source [facility] ([facility]OVID-19) Ag [Presence] in Respiratory specimen by Rapid [id number] 11:17:00* Test Item Value Reference Range Interpretation Comme nts SARS CoV 2 (test code = SARS CoV 2) negative [facility] W Auto Differential panel - [id number] 00:00:00* Test Item Value Reference Range Interpretation Comme nts Leukocytes [#/volume] in Blo od by Automated count (test code = 6690-2) 8.7 x10e3/uL 3.4-10.8 Erythrocytes [#/volume] in Blood by Automated count (test code = 789-8) 5.29 x10e6/uL 4.14-5.80 Hemoglobin [Mass/volume] in Blood (test code = 718-7) 15.8 g/dL 13.0-17.7 Hematocrit [Volume Fraction] of Blood by Automated count (test code = 4544-3) 46.9 % 37.5-51.0 Erythrocyte mean corpuscular volume [Entitic volume] by Automated count (test code = 787-2) 89 fL 79-97 Erythrocyte mean corpuscular hemoglobin [Entitic mass] by Automated count (test code = 785-6) 29.9 pg 26.6-33.0 Erythrocyte mean corpuscular hemoglobin concentration [Mass/volume] by Automated count (test code = 786-4) 33.7 g/dL 31.5-35.7 Erythrocyte distribution wid th [Ratio] by Automated count (test code = 788-0) 12.6 % 11.6-15.4 Platelets [#/volume] in Bloo d by Automated count (test code = 777-3) 217 x10e3/uL 150-450 Neutrophils/100 leukocytes i n Blood by Automated count (test code = 770-8) 61 % not estab. Lymphocytes/100 leukocytes i n Blood by Automated count (test code = 736-9) 28 % not estab. Monocytes/100 leukocytes in Blood by Automated count (test code = 5905-5) 8 % not estab. Eosinophils/100 leukocytes i n Blood by Automated count (test code = 713-8) 2 % not estab. Basophils/100 leukocytes in Blood by Automated count (test code = 706-2) 1 % not estab. immature cells (test code = immature cells) nut tapper Neutrophils [#/volume] in Bl ood by Automated count (test code = 751-8) 5.3 x10e3/uL 1.4-7.0 Lymphocytes [#/volume] in Bl ood by Automated count (test code = 731-0) 2.5 x10e3/uL 0.7-3.1 Monocytes [#/volume] in Bloo d by Automated count (test code = 742-7) 0.7 x10e3/uL 0.1-0.9 Eosinophils [#/volume] in Bl ood by Automated count (test code = 711-2) 0.2 x10e3/uL 0.0-0.4 Basophils [#/volume] in Bloo d by Automated count (test code = 704-7) 0.1 x10e3/uL 0.0-0.2 Immature granulocytes/100 leukocytes in Blood by Automated count (test code = 96072-6) 0 % not estab. Immature granulocytes [#/volume] in Blood by Automated count (test code = 41957-9) 0.0 x10e3/uL 0.0-0.1 Nucleated erythrocytes/100 leukocytes [Ratio] in Blood by Automated count (test code = 21118-6) nut tapper Morphology [Interpretation] in Blood Narrative (test code = 97146-4) nut tapper [facility] 2000 panel - Serum or [id number] 00:00:00* Test Item Value Reference Range Interpretation Comme nts Glucose [Mass/volume] in Serum or Plasma (test code = 2345-7) 97 mg/dL 65-99 Urea nitrogen [Mass/volume] in Serum or Plasma (test code = 3094-0) 13 mg/dL 6-20 Creatinine [Mass/volume] in Serum or Plasma (test code = 2160-0) 0.97 mg/dL 0.76-1.27 Glomerular filtration rate/1.73 sq M.predicted among non-blacks [Volume Rate/Area] in Serum, Plasma or Blood by Creatinine-based formula (CKD-EPI) (test code = 81344-9) 112 mL/min/1.73 >59 Glomerular filtration rate/1.73 sq M.predicted among blacks [Volume Rate/Area] in Serum, Plasma or Blood by Creatinine-based formula (CKD-EPI) (test code = 92139-7) 129 mL/min/1.73 >59 Urea nitrogen/Creatinine [Mass Ratio] in Serum or Plasma (test code = 3097-3) 13 9-20 Sodium [Moles/volume] in Serum or Plasma (test code = 2951-2) 138 mmol/L 134-144 Potassium [Moles/volume] in Serum or Plasma (test code = 2823-3) 3.9 mmol/L 3.5-5.2 Chloride [Moles/volume] in Serum or Plasma (test code = 2075-0) 104 mmol/L 96-106 Carbon dioxide, total [Moles/volume] in Serum or Plasma (test code = 2027-9) 22 mmol/L 20-29 Calcium [Mass/volume] in Serum or Plasma (test code = 70925-3) 9.7 mg/dL 8.7-10.2 Protein [Mass/volume] in Serum or Plasma (test code = 2885-2) 7.2 g/dL 6.0-8.5 Albumin [Mass/volume] in Serum or Plasma (test code = 1751-7) 4.4 g/dL 4.1-5.2 Globulin [Mass/volume] in Serum by calculation (test code = 56268-9) 2.8 g/dL 1.5-4.5 Albumin/Globulin [Mass Ratio ] in Serum or Plasma (test code = 1759-0) 1.6 1.2-2.2 Bilirubin.total [Mass/volume ] in Serum or Plasma (test code = 1975-2) 0.3 mg/dL 0.0-1.2 Alkaline phosphatase [Enzymatic activity/volume] in Serum or Plasma (test code = 6768-6) 95 IU/L 39-117 Aspartate aminotransferase [Enzymatic activity/volume] in Serum or Plasma (test code = 1920-8) 24 IU/L 0-40 Alanine aminotransferase [Enzymatic activity/volume] in Serum or Plasma (test code = 1742-6) 43 IU/L 0-44 [facility] panel - Serum or [id number] 00:00:00* Test Item Value Reference Range Interpretation Comme nts Cholesterol [Mass/volume] in Serum or Plasma (test code = 2093-3) 142 mg/dL 100-199 Triglyceride [Mass/volume] i n Serum or Plasma (test code = 2571-8) 100 mg/dL 0-149 Cholesterol in HDL [Mass/vol ume] in Serum or Plasma (test code = 2085-9) 24 mg/dL >39 L Cholesterol in VLDL [Mass/vo lume] in Serum or Plasma by calculation (test code = 78156-7) 19 mg/dL 5-40 Cholesterol in LDL [Mass/vol ume] in Serum or Plasma by calculation (test code = 12391-3) 99 mg/dL 0-99 Laboratory comment [Text] in Report Narrative (test code = 16851-2) nut tapper [facility]Hemoglobin A1c/Hemoglobin.total in Blood 2020-07-13 00:00:00* Test Item Value Reference Range Interpretation Comme nts Hemoglobin A1c/Hemoglobin.to shaniqua in Blood (test code = 4548-4) 5.1 % 4.8-5.6 [facility] Campus[facility]inalysis macro (dipstick) panel - Urine 2020-07-12 10:02:00* Test Item Value Reference Range Interpretation Comme nts Leukocytes (test code = Leukocytes) Negative Nitrite (test code = Nitrite) negative Urobilinogen (test code = Urobilinogen) .2 Protein (test code = Protein) Trace pH (test code = pH) 7.0 Blood (test code = Blood) Moderate Specific [place] (test code = Specific [place]) 1.015 Ketone (test code = Ketone) Negative Bilirubin (test code = Bilirubin) Negative Glucose (test code = Glucose) Negative Appearance (test code = Appearance) Cloudy Color (test code = Color) Yellow [facility]
[2024-09-27] MEDS ORDERED: ONDANSETRON 4 MG/2 ML VIAL ONE (01:54)
[2024-09-27] MEDS ORDERED: HYDRALAZINE HCL 20 MG/ML VIAL ONE (01:54)
[2024-09-27] MEDS ORDERED: MORPHINE 2 MG/ML SYR ONE (01:55)
[2024-09-27] MEDS ORDERED: MORPHINE 4 MG/ML SYR ONE (01:55)
[2024-09-27] MEDS ORDERED: TRANEXAMIC ACID 1,000 MG/10 ML VIAL IV ONE (01:55)
[2024-09-27] MEDS ORDERED: NITROGLYCERIN/D5W 50 MG/250 ML BTL IV ONE (01:56)
[2024-09-27] MEDS ORDERED: NA CHLORIDE 0.9% 50 ML ONE (01:56)
[2024-09-27] MEDS ORDERED: LORazepam 2 MG/ML VIAL ONE (02:32)
[2024-09-27 02:54] LABS: PT Prothrombin Time 10.9 SECONDS (9.4-12.5); Protime INR 1.04
[2024-09-27 02:56] LABS: Absolute Basophils 0.1 K/uL (0-0.5); Absolute Eosinophils 0.1 K/uL (0-0.5); Absolute Lymphocytes (CBC) 2.5 K/uL (0.7-4.9); Absolute Monocytes 0.9 K/uL (0.1-1.3); Absolute Neutrophil 7.8 K/uL (1.8-8.0); Basophils % 0.5 % (0-1.3); Eosinophils % 1.1 % (0-4.4); Hematocrit 52.2 % (39.6-49.0); Hemoglobin 17.9 g/dL (13.6-17.9); MCH 30.6 pg (27.0-35.0); MCHC 34.2 g/dL (32.0-36.0); MCV 89.4 fL (80-100); MPV 9.4 fL (7.6-11.3); Monocytes % 7.7 % (3.3-12.3); Neutrophils % 68.7 % (41.7-73.7); Nucleated Red Blood Cells % 0.2 % (0-0); Platelets 208 thou/uL (152-406); RBC Red Blood Cell Count 5.84 M/uL (4.33-5.43)
[2024-09-27 03:07] LABS: ALT/SGPT 46 U/L (16-61); AST/SGOT 31 U/L (15-37); Albumin 3.6 g/dL (3.4-5.0); Albumin/Globulin Ratio 0.9 (1.1-1.8); Alkaline Phosphatase 86 U/L (45-117); Anion Gap 9.8 mEq/L (5.0-15.0); BUN Blood Urea Nitrogen 25 mg/dL (7-18); Bicarbonate 25 mEq/L (21-32); Bilirubin Total 0.4 mg/dL (0.2-1.0); Globulin 4.2 g/dL (2.3-3.5); Glomerular Filtration Rate 35 ml/min (=/>90); Glucose Level 129 mg/dL (74-106); Magnesium 2.3 mg/dL (1.6-2.4); NT PRO-BNP 1154 pg/mL (<125); Potassium 2.8 mEq/L (3.5-5.1); Protein, Total 7.8 g/dL (6.4-8.2); Sodium Level 138 mEq/L (136-145); Troponin High Sensitivity 42.1 pg/mL (<58.9)
[2024-09-27 03:09] LABS: Bilirubin Direct < 0.2 mg/dL (0-0.2); Bilirubin Indirect, Calculated 0.2 mg/dL (0.2-0.8)
--- NOTE | 2024-09-27 04:21 | ER ---
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 PT REPORTS NOSE BLEEDS X 2 DAYS OFF AND ON. DENIES BLOOD THINNERS. Coronavirus screen: At this time, the client does not indicate any symptoms associated with coronavirus-19. Ebola Screen: No symptoms or risks identified at this time. Initial Sepsis Screen: Does the patient meet any 2 criteria? No. Patient's initial sepsis screen is negative. Does the patient have a suspected source of infection? No. Patient's initial sepsis screen is negative. Risk Assessment: Do you want to hurt yourself or someone else? Patient reports no desire to harm self or others. Onset of symptoms is unknown. 01:33 Method Of Arrival: Ambulatory dd2 01:33 Acuity: CASH 3 dd2 Triage Assessment: 01:35 General: Appears in no apparent distress. uncomfortable, Behavior is cooperative, dd2 appropriate for age, anxious. Pain: Denies pain. EENT: Nares with bleeding noted Reports nasal discharge that is bloody. Neuro: No deficits noted. Level of Consciousness is awake, alert, obeys commands, Oriented to person, place, time, situation, Appropriate for age. Cardiovascular: Denies chest pain, ELEVATED BP. Respiratory: Airway is patent Respiratory effort is even, unlabored, Respiratory pattern is regular, symmetrical. GI: No deficits noted. No signs and/or symptoms were reported involving the gastrointestinal system. : No deficits noted. No signs and/or symptoms were reported regarding the genitourinary system. Derm: No deficits noted. No signs and/or symptoms reported regarding the dermatologic system. Musculoskeletal: No deficits noted. No signs and/or symptoms reported regarding the musculoskeletal system. Circulation, motion, and sensation intact. Range of motion: intact in all extremities. Historical: - Allergies: 01:35 Iodine; dd2 - PMHx: 01:35 Hypertensive disorder; dd2 - PSHx: 01:35 None; dd2 - Immunization history:: Adult Immunizations up to date, Client reports receiving the 2nd dose of the Covid vaccine, Flu vaccine is up to date. - Infectious Disease History:: Denies. - Social history:: Smoking status: Reported history of juuling and/or vaping. - Family history:: not pertinent. Screenin:38 [facility] ED Fall Risk Assessment (Adult) History of falling in the last 3 months, dd2 including since admission No falls in past 3 months (0 pts) Confusion or Disorientation No (0 pts) Intoxicated or Sedated No (0 pts) Impaired Gait No (0 pts) Mobility Assist Device Used No (0 pt) Altered Elimination No (0 pt) Score/Fall Risk Level 0 - 2 = Low Risk Oriented to surroundings, Maintained a safe environment, Educated pt \T\ family on fall prevention, incl call for assistance when getting out of bed, Assessed \T\ reinforced patient's understanding of fall precautions, Hourly rounding (assess needs \T\ fall precautionary measures) done. Abuse screen: Denies threats or abuse. Nutritional screening: No deficits noted. Tuberculosis screening: No symptoms or risk factors identified. Assessment: 01:38 Reassessment: SEE TRIAGE ASSESSMENT FOR FULL ASSESSMENT. dd2 03:17 Reassessment: Patient and/or family updated on plan of care and expected duration. Pain dd2 level reassessed. Patient is alert, oriented x 3, equal unlabored respirations, skin warm/dry/pink. Bleeding controlled. Patient denies pain at this time. Patient states feeling better. Patient states symptoms have improved. Vital Signs: 01:33 BP 248 / 145; Pulse 106; Resp 17; Temp 98.1; Pulse Ox 98% on R/A; Weight 154.22 kg; dd2 Height 6 ft. 5 in. ; Pain 0/10; 01:45 BP 227 / 142; Pulse 96; Resp 18; Pulse Ox 96% on R/A; dd2 02:00 BP 234 / 132; Pulse 101; Resp 19; Pulse Ox 100% on R/A; dd2 02:20 BP 180 / 96; Pulse 81; Resp 17; Pulse Ox 99% on R/A; dd2 02:30 BP 170 / 79; Pulse 71; Resp 16; Pulse Ox 99% on R/A; dd2 03:00 BP 173 / 84; Pulse 84; Resp 16; Pulse Ox 100% on R/A; dd2 03:30 BP 171 / 101; Pulse 89; Resp 17; Pulse Ox 100% on R/A; dd2 04:00 BP 186 / 93; Pulse 89; Resp 17; Pulse Ox 100% on R/A; dd2 04:27 BP 195 / 104; Pulse 91; Resp 17; Pulse Ox 99% on R/A; dd2 04:40 BP 198 / 103; Pulse 90; Resp 20; Temp 99; Pulse Ox 99% on R/A; aa10 01:33 Body Mass Index 40.32 (154.22 kg, 195.58 cm) dd2 01:33 Pain Scale: Adult dd2 [place] Coma Score: 01:38 Eye Response: spontaneous(4). Motor Response: obeys commands(6). Verbal Response: dd2 oriented(5). Total: 15. 0220 02:01 Eye Response: spontaneous(4). Motor Response: obeys commands(6). Verbal Response: sp4 oriented(5). Total: 15. NIH Stroke Scale Scores: 09/27 02:01 NIHSS Score: 0 sp4 ED Course: 01:22 Patient arrived in ED. gm2 01:33 FERNANDO SOLIS RN is Primary Nurse. dd2 01:34 Luis Cervantes MD is Attending Physician. sp4 01:35 Triage completed. dd2 01:35 Arm band placed on right wrist. Patient placed in an exam room, on a stretcher, on dd2 pulse oximetry. 01:38 Patient has correct armband on for positive identification. Bed in low position. Call dd2 light in reach. Side rails up X 1. Client placed on continuous cardiac and pulse oximetry monitoring. NIBP monitoring applied. monitoring analyst on. Door closed. Noise minimized. Pillow given. Verbal reassurance given. 01:38 No provider procedures requiring assistance completed. Patient maintains SpO2 dd2 saturation greater than 95% on room air. 04:19 Mathew Hammond MD is Referral Physician. sp4 04:41 Provided Education on: D/C EDUCATION. dd2 04:41 IV discontinued, intact, bleeding controlled, No redness/swelling at site. Pressure dd2 dressing applied. Administered Medications: 04:45 Discontinued: nitroglycerin5 mcg/min IV at calculated rate See Administration dd2 Instructions; Standard concentration 50mg/250mL; Recommended max rate 200 mcg/min; max rate for Angina 400mcg/min; Titrate 5 mcg/min q5min to achieve goal (see titration policy); Goal parameter SBP less than 160 bpm or resolution of chest pain; low-sorbing IV tubing. 02:19 Drug: Nitroglycerin IV 5 mcg/min IV at calculated rate See Administration Instructions; dd2 Standard concentration 50mg/250mL; Recommended max rate 200 mcg/min; max rate for Angina 400mcg/min; Titrate 5 mcg/min q5min to achieve goal (see titration policy); Goal parameter SBP less than 160 bpm or resolution of chest pain; low-sorbing IV tubing. Route: IV; Rate: calculated rate; Site: right antecubital; 02:20 Drug: hydrALAZINE IVP 20 mg IVP once Route: IVP; Site: right antecubital; dd2 02:35 Follow up: Response: No adverse reaction dd2 02:33 Drug: Ondansetron IVP 8 mg IVP once; over 2 minutes Route: IVP; Site: right antecubital;dd2 02:48 Follow up: Response: No adverse reaction dd2 02:33 Drug: tranexamic acid 1000 mg IV at calculated rate once; administer at a rate not to dd2 exceed 100 mg per min Route: IV; Rate: calculated rate; Site: right antecubital; 02:34 Drug: Ativan IVP 2 mg IVP once Route: IVP; Site: right antecubital; dd2 04:39 Follow up: Response: No adverse reaction; Marked relief of symptoms aa10 02:39 Not Given (Patient Refused): morphineor iv 5 mg IVP once over 4 mins dd2 04:24 Not Given (Physician Discretion): potassium [id number] meq IV at calculated rate once; dd2 administer over 1-2 hours 04:41 Drug: Potassium Chloride PO 40 mEq PO once Route: PO; dd2 04:41 Follow up: Response: Medication administered at discharge. dd2 Medication: 01:38 VIS not applicable for this client. dd2 Outcome: 04:21 Discharge ordered by MD. mayer 04:41 Discharged to home ambulatory, dd2 04:41 Condition: stable 04:41 Discharge instructions given to patient, Instructed on discharge instructions, follow up and referral plans. medication usage, RETURN IF NOSEBLEED RETURNS, CHEST PAIN, OR AFTER F/U WITH PCP Demonstrated understanding of instructions, follow-up care, medications, Prescriptions given X 1, 04:43 Patient left the ED. dd2 NIH Stroke Scale - NIH Stroke Score Date: 09/27/2024 Time: 02:01 Total Score = 0 10. Dysarthria (speech clarity - read or repeat words) - 0(Normal) 11. Extinction and Inattention (visual/tactile/auditory/spatial/personal) - 0(No abnormality) 1a. Level of Consciousness (LOC) - 0(Alert) 1b. Level of Consciousness (LOC) (Month \T\ Age) - 0(Both) 1c. LOC Commands (Open \T\ Closes Eyes/Process Design Engineer) - 0(Both) 2. Best Gaze (Lateral Gaze Paresis) - 0(Normal) 3. Visual Field Loss - 0(No visual loss) 4. Facial Palsy - 0(Normal) 5a. Left Arm: Motor (10-second hold) - 0(No drift) 5b. Right Arm: Motor (10-second hold) - 0(No drift) 6a. Left Leg: Motor (5-second hold - always test supine) - 0(No drift) 6b. Right Leg: Motor (5-second hold - always test supine) - 0(No drift) 7. Limb Ataxia (finger/nose \T\ heel/baugh - test with eyes open) - 0(Absent) 8. Sensory Loss (pinprick arms/legs/face) - 0(Normal) 9. Best Language: Aphasia (description/naming/reading) - 0(No aphasia) Initials: sp4 Signatures: Luis Cervantes MD MD sp4 Angela Gale 2 FERNANDO SOLIS RN RN dd2 Michelle Ferguson RN RN aa10
--- NOTE | 2024-09-27 04:21 | EDPHYS ---
Physician Documentation [facility] Name: Lv Gonzalez Age: 24 yrs Sex: Male : 2000 Arrival Date: 09/27/2024 Time: 01:18 Bed 7 Private MD: ED Physician Luis Cervantes HPI: 09/27 01:34 This 24 yrs old Black Male presents to ER via Unassigned with complaints of Nose Bleed. sp4 09/28 02:00 24-year-old male presents with acute onset bilateral nosebleed. Moderate on sp4 presentation. Patient states he has had some nosebleeds in the past several days.. Historical: - Allergies: 09/27 01:35 Iodine; dd2 - PMHx: 01:35 Hypertensive disorder; dd2 - PSHx: 01:35 None; dd2 - Immunization history:: Adult Immunizations up to date, Client reports receiving the 2nd dose of the Covid vaccine, Flu vaccine is up to date. - Infectious Disease History:: Denies. - Social history:: Smoking status: Reported history of juuling and/or vaping. - Family history:: not pertinent. ROS: 09/28 02:01 Constitutional: Negative for fever, chills, and weight loss, positive for acute sp4 bilateral nosebleed All other systems are negative, Exam: 09/27 02:01 ECG was reviewed by the Attending Physician. EKG 0201 normal sinus rhythm rate 95 sp4 right axis deviation. 09/28 02:01 Constitutional: This is a well developed, well nourished patient who is awake, alert, sp4 positive for acute nosebleed bilateral epistaxis on arrival Head/Face: Normocephalic, atraumatic. Eyes: Pupils equal round and reactive to light, extra-ocular motions intact. Lids and lashes normal. Conjunctiva and sclera are not injected. Cornea within normal limits. Periorbital areas with no swelling, redness, or edema. ENT: Nares patent. No nasal discharge, no septal abnormalities noted. Tympanic membranes are normal and external auditory canals are clear. Oropharynx with no redness, swelling, or masses, exudates, or evidence of obstruction, uvula midline. Mucous membranes moist. Neck: Trachea midline, no thyromegaly or masses palpated, and no cervical lymphadenopathy. Supple, full range of motion without nuchal rigidity, or vertebral point tenderness. Chest/axilla: Normal chest wall appearance and motion. Nontender with no deformity. No lesions are appreciated. Cardiovascular: Regular rate and rhythm with a normal S1 and S2. No gallops, murmurs, or rubs. Normal PMI, no JVD. No pulse deficits. Respiratory: Lungs have equal breath sounds bilaterally, clear to auscultation and percussion. No rales, rhonchi or wheezes noted. No increased work of breathing, no retractions or nasal flaring. Abdomen/GI: Soft, with normal bowel sounds. No distension or tympany. No guarding or rebound. No evidence of tenderness throughout. Back: No spinal tenderness. No costovertebral tenderness. Skin: Warm, dry with normal turgor. Normal color with no rashes, no lesions, and no evidence of cellulitis. MS/ Extremity: Pulses equal, no cyanosis. Neurovascular intact. Full, normal range of motion. Neuro: Awake and alert, GCS 15, oriented to person, place, time, and situation. Cranial nerves II-XII grossly intact. Motor strength 5/5 in all extremities. Sensory grossly intact. Psych: Awake, alert, with orientation to person, place and time. Behavior, mood, and affect are within normal limits Vital Signs: 09/27 01:33 BP 248 / 145; Pulse 106; Resp 17; Temp 98.1; Pulse Ox 98% on R/A; Weight 154.22 kg; dd2 Height 6 ft. 5 in. ; Pain 0/10; 01:45 BP 227 / 142; Pulse 96; Resp 18; Pulse Ox 96% on R/A; dd2 02:00 BP 234 / 132; Pulse 101; Resp 19; Pulse Ox 100% on R/A; dd2 02:20 BP 180 / 96; Pulse 81; Resp 17; Pulse Ox 99% on R/A; dd2 02:30 BP 170 / 79; Pulse 71; Resp 16; Pulse Ox 99% on R/A; dd2 03:00 BP 173 / 84; Pulse 84; Resp 16; Pulse Ox 100% on R/A; dd2 03:30 BP 171 / 101; Pulse 89; Resp 17; Pulse Ox 100% on R/A; dd2 04:00 BP 186 / 93; Pulse 89; Resp 17; Pulse Ox 100% on R/A; dd2 04:27 BP 195 / 104; Pulse 91; Resp 17; Pulse Ox 99% on R/A; dd2 04:40 BP 198 / 103; Pulse 90; Resp 20; Temp 99; Pulse Ox 99% on R/A; aa10 01:33 Body Mass Index 40.32 (154.22 kg, 195.58 cm) dd2 01:33 Pain Scale: Adult dd2 NIH Stroke Scale Scores: 02:01 NIHSS Score: 0 sp4 [place] Coma Score: 01:38 Eye Response: spontaneous(4). Motor Response: obeys commands(6). Verbal Response: dd2 oriented(5). Total: 15. 02 02:01 Eye Response: spontaneous(4). Motor Response: obeys commands(6). Verbal Response: sp4 oriented(5). Total: 15. MDM: 09/27 03:00 Medical Screening Exam initiated sp4 09/28 02:04 Differential diagnosis: nasal fracture, trauma, sinusitis, epistaxis r/t trauma, sp4 spontaneous epistaxis. Data reviewed: vital signs, nurses notes, lab test result(s), EKG, radiologic studies, plain films. 02:04 Consideration of Admission/Observation Escalation of care including sp4 admission/observation considered. ED course: Patient has signs of renal insufficiency and early diastolic heart failure. After blood pressure was brought under control nosebleed has subsided. Patient refused nasal packing. Patient was advised that he needs to come into the hospital for blood pressure control also evaluation for heart failure and renal failure. Patient declined hospital admission. He states he would like to go home at this time. Patient states in the past she was on amlodipine 10 mg p.o. daily. Amlodipine 10 mg p.o. daily was prescribed. Patient was again strongly advised to stay in hospital to be fully evaluated with echocardiogram, additional test that may be necessary. Also was advised to stay for blood pressure control. Patient declined to stay in the hospital. He was referred to Dr. Hammond with cardiology.. 02:06 ED course: Patient was informed that in case he changes his mind about admission he sp4 should return to the hospital and be admitted for full workup. Also for cardiology consult. . 09/27 01:35 Order name: Basic Metabolic Panel; Complete Time: 03:58 sp4 09/27 01:35 Order name: CBC with Diff; Complete Time: 03:58 09/27 01:35 Order name: LFT's; Complete Time: 03:58 09/27 01:35 Order name: Magnesium; Complete Time: 03:58 09/27 01:35 Order name: NT PRO-BNP; Complete Time: 03:58 09/27 01:35 Order name: PT-INR; Complete Time: 03:58 09/27 01:35 Order name: Troponin HS; Complete Time: 03:58 09/27 01:35 Order name: EKG; Complete Time: 01:36 09/27 01:35 Order name: Cardiac monitoring; Complete Time: 02:02 09/27 01:35 Order name: EKG - Nurse/Tech; Complete Time: 02:02 09/27 01:35 Order name: IV Saline Lock; Complete Time: 02:02 09/27 01:35 Order name: Labs collected and sent; Complete Time: 02:19 09/27 01:35 Order name: O2 Per Protocol; Complete Time: 02:19 09/27 01:35 Order name: O2 Sat Monitoring; Complete Time: 02: EC/19 02:01 Rate is 95 beats/min. Rhythm is regular, Normal Sinus Rhythm. Right axis deviation sp4 noted. TN interval is normal. QRS interval is normal. QT interval is normal. T waves are Inverted in leads V4, V5, V6. No ST changes noted. Interpreted by me. Reviewed by me. Administered Medications: 04:45 Discontinued: nitroglycerin5 mcg/min IV at calculated rate See Administration dd2 Instructions; Standard concentration 50mg/250mL; Recommended max rate 200 mcg/min; max rate for Angina 400mcg/min; Titrate 5 mcg/min q5min to achieve goal (see titration policy); Goal parameter SBP less than 160 bpm or resolution of chest pain; low-sorbing IV tubing. 02:19 Drug: Nitroglycerin IV 5 mcg/min IV at calculated rate See Administration Instructions; dd2 Standard concentration 50mg/250mL; Recommended max rate 200 mcg/min; max rate for Angina 400mcg/min; Titrate 5 mcg/min q5min to achieve goal (see titration policy); Goal parameter SBP less than 160 bpm or resolution of chest pain; low-sorbing IV tubing. Route: IV; Rate: calculated rate; Site: right antecubital; 02:20 Drug: hydrALAZINE IVP 20 mg IVP once Route: IVP; Site: right antecubital; dd2 02:35 Follow up: Response: No adverse reaction dd2 02:33 Drug: Ondansetron IVP 8 mg IVP once; over 2 minutes Route: IVP; Site: right antecubital;dd2 02:48 Follow up: Response: No adverse reaction dd2 02:33 Drug: tranexamic acid 1000 mg IV at calculated rate once; administer at a rate not to dd2 exceed 100 mg per min Route: IV; Rate: calculated rate; Site: right antecubital; 02:34 Drug: Ativan IVP 2 mg IVP once Route: IVP; Site: right antecubital; dd2 04:39 Follow up: Response: No adverse reaction; Marked relief of symptoms aa10 02:39 Not Given (Patient Refused): morphineor iv 5 mg IVP once over 4 mins dd2 04:24 Not Given (Physician Discretion): potassium [id number] meq IV at calculated rate once; dd2 administer over 1-2 hours 04:41 Drug: Potassium Chloride PO 40 mEq PO once Route: PO; dd2 04:41 Follow up: Response: Medication administered at discharge. dd2 Disposition Summary: 09/27/24 04:21 Discharge Ordered Problem: new sp4 Symptoms: have improved sp4 Condition: Stable sp4 Diagnosis - Hypertensive heart disease with heart failure sp4 - Hypertensive emergency with acute renal insufficiency and acute diastolic heart sp4 failure Followup: sp4 - With: Mathew Hammond MD - When: 1 - 2 days - Reason: Recheck today's complaints Discharge Instructions: - Discharge Summary Sheet sp4 - Heart Failure, Diagnosis sp4 Forms: - Patient Portal Instructions sp4 Prescriptions: - amlodipine 10 mg Oral tablet - take 1 tablet ORAL route every evening for 30 days; 30 tablet; Refills: 0, sp4 Product Selection Permitted Critical care time excluding procedures: 04:28 Critical care time: Bedside Care: 36 minutes, Family Intervention: 12 minutes. Total sp4 time: 48 minutes NIH Stroke Scale - NIH Stroke Score Date: 09/27/2024 Time: 02:01 Total Score = 0 10. Dysarthria (speech clarity - read or repeat words) - 0(Normal) 11. Extinction and Inattention (visual/tactile/auditory/spatial/personal) - 0(No abnormality) 1a. Level of Consciousness (LOC) - 0(Alert) 1b. Level of Consciousness (LOC) (Month \T\ Age) - 0(Both) 1c. LOC Commands (Open \T\ Closes Eyes/Technical Support Associate) - 0(Both) 2. Best Gaze (Lateral Gaze Paresis) - 0(Normal) 3. Visual Field Loss - 0(No visual loss) 4. Facial Palsy - 0(Normal) 5a. Left Arm: Motor (10-second hold) - 0(No drift) 5b. Right Arm: Motor (10-second hold) - 0(No drift) 6a. Left Leg: Motor (5-second hold - always test supine) - 0(No drift) 6b. Right Leg: Motor (5-second hold - always test supine) - 0(No drift) 7. Limb Ataxia (finger/nose \T\ heel/baugh - test with eyes open) - 0(Absent) 8. Sensory Loss (pinprick arms/legs/face) - 0(Normal) 9. Best Language: Aphasia (description/naming/reading) - 0(No aphasia) Initials: sp4 Signatures: Dispatcher [employer] Luis Monk MD MD sp4 FERNANDO SOLIS RN RN dd2 Michelle Ferguson RN aa10
[2024-09-27] MEDS ORDERED: POTASSIUM CL SA 10 MEQ TAB PO ONE (04:29)
[2024-09-27 07:18] VITALS: O2SAT 99
[2024-09-27 07:19] VITALS: BP 198/103; TEMP 99
== END 2024-09-27 04:43 | disposition home or self-care (01) ==
LOC: ER 01:18
DX: I11.0 Hypertensive heart disease with heart failure (principal); I50.31 Acute diastolic (congestive) heart failure; I16.1 Hypertensive emergency; N28.9 Disorder of kidney and ureter, unspecified
CPT/HCPCS: 36415; 80048; 80076; 83735; 83880; 84484; 85025; 85610; 93005; J0360; J2270; J2405